=== PATIENT | male | born 1950 | race Caucasian/White ===

== ENCOUNTER 2019-10-21 00:21 | Outpatient (CLI) | payer MEDICARE, SELFPAY ==
[2019-10-21 17:31] LABS: SARS-CoV-2 RNA PCR Negative
== END 2019-10-21 00:22 | disposition home or self-care (01) ==
LOC: ANHCOVIDDT 00:21
PROVIDERS: PCP Family Medicine; Visit Provider Internal Medicine Gastroenterology
DX: Z01.812 Encounter for preprocedural laboratory examination (principal); Z20.828 Contact with and (suspected) exposure to other viral communicable diseases
CPT/HCPCS: 87635; C9803; U0003

== ENCOUNTER 2019-10-23 00:53 | Day surgery (SDC) | payer MEDICARE, SELFPAY ==
[2019-10-14 10:35] VITALS: BMI 32.3
[2019-10-23 06:25] VITALS: BP 150/65; PULSE 74; RESP 20; TEMP 36.5; O2SAT 100
[2019-10-23] MEDS: LACTATED RINGERS 1,000 ML 150 ML IV CONT (06:39)
[2019-10-23 06:51] LABS: Glucose Point of Care 141 (65-105)
--- NOTE | 2019-10-23 07:05 | WPDANESEPPF ---
Anes - Initial Pre Proc Eval Procedure: Operation Date: 10/23/19 07:30 Proposed Procedures p Screening Colonoscopy - Eleazar Faria MD Date/Time: 10/23/19 07:05 Surgeon: Eleazar Faria MD Pre Op Diagnosis: Hx Colon Polyps Patient Data Age: 69 Gender: M Height: 5 ft 11 in Weight: 107.7 kg Last Vital Signs Temp 36.5 C 10/23/19 06:25 Pulse 74 10/23/19 06:25 Resp 20 10/23/19 06:25 BP 150/65 H 10/23/19 06:25 Pulse Ox 100 10/23/19 06:25 Allergies Allergy/AdvReac Type Severity Reaction Status Date / Time No Known Allergies Allergy Verified 10/23/19 06:23 Home Medications Medication Instructions Recorded Confirmed Type tamsulosin 0.4 mg capsule 0.4 mg PO DAILY #90 cap 04/25/19 10/14/19 Rx lisinopril 10 mg tablet 10 mg PO DAILY #90 tablet 04/29/19 10/23/19 Rx pravastatin 20 mg tablet 20 mg PO .QHS #90 tablet 07/16/19 10/14/19 Rx metformin 500 mg tablet,extended 500 mg PO QPM #90 tablet 10/07/19 10/23/19 Rx release 24hr Laboratory Tests 10/23/19 06:41 POC Capillary Glucose 141 mg/dl H mg/dl (65-105) Patient hx anesthesia problems: none Family hx anesthesia problems: none PMFSH Past Medical History Medical History Allergic rhinitis BPH w urinary obs/LUTS Diabetes Dyslipidemia 05/01/2018 Erectile dysfunction Essential (primary) hypertension GERD without esophagitis 11/07/2018 Hypertension Hypogonadism in male 01/25/2017 Type 2 diabetes mellitus without complication, without long-term current use of insulin Surgical History Surgical History Hx of tonsillectomy age 3 [place] teeth extracted Family History Family History Father Heart disease Other Carcinoma of colon Social History Social History Smoking status: Never smoker Second hand tobacco smoke exposure: No Alcohol intake: current Substance use: never Substance use type: does not use Anes - Eval Final PreProcedure Day of Procedure 10/23/19 07:05 Patient weight: obese Heart: regular rate and rhythm Lungs: clear to auscultation Airway: Mallampati scale class II Neurological: alert and oriented Last oral intake: >/= 8 hours ASA classification: III Emergent: no Anesthetic plan: proceed Anesthesia type and monitoring: general GIVS and standard monitoring Informed Consent: The patient's anesthetic plan and its attendant risks and benefits were discussed with the patient/family/POA. Questions were solicited and answers provided to the satisfaction of the patient/family/POA.
--- NOTE | 2019-10-23 07:48 | WPDGICN ---
Assessment and Plan Assessment and plan (1) Encounter for colonoscopy due to history of adenomatous colonic polyps: Code(s): Z12.11 - Encounter for screening for malignant neoplasm of colon; Z86.010 - Personal history of colonic polyps Status: Acute Assessment and Plan: Patient has had a history of adenomatous colon polyps on several occasions in the past. Most recent exam was 5 years ago. Panel plan is for follow-up colonoscopy now and at 5 year intervals in the future. (2) Family history of malignant neoplasm of colon in first degree relative diagnosed when younger than 60 years of age: Code(s): Z80.0 - Family history of malignant neoplasm of digestive organs Status: Acute GI Consult Note Consult date/time: 10/23/19 07:48 HPI: Ishmael Pillai is a 69 year old male Seen in evaluation at the request of Dr. Singh. Patient has a history of colon polyps in the past. His current weight appetite bowel movements are normal. He denies abdominal pain. His weight has remained stable. Last colonoscopy was 5 years ago. There is a family history of colon cancer as well. [facility] Past Medical History Medical History Allergic rhinitis BPH w urinary obs/LUTS Diabetes Dyslipidemia 05/01/2018 Erectile dysfunction Essential (primary) hypertension GERD without esophagitis 11/07/2018 Hypertension Hypogonadism in male 01/25/2017 Type 2 diabetes mellitus without complication, without long-term current use of insulin Surgical History Surgical History Hx of tonsillectomy age 3 [place] teeth extracted Family History Family History Father Heart disease Other Carcinoma of colon Social History Social History Smoking status: Never smoker Second hand tobacco smoke exposure: No Alcohol intake: current Substance use: never Substance use type: does not use Meds Home Medications and Allergies Home Medications Medication Instructions Recorded Confirmed Type tamsulosin 0.4 mg capsule 0.4 mg PO DAILY #90 cap 04/25/19 10/14/19 Rx lisinopril 10 mg tablet 10 mg PO DAILY #90 tablet 12/03/19 05/28/20 Rx pravastatin 20 mg tablet 20 mg PO .QHS #90 tablet 07/16/19 10/14/19 Rx metformin 500 mg tablet,extended 500 mg PO QPM #90 tablet 10/07/19 10/23/19 Rx release 24hr Allergies Allergy/AdvReac Type Severity Reaction Status Date / Time No Known Allergies Allergy Verified 10/23/19 06:23 Vital Signs Vital Signs - 24 hr 10/23/19 06:25 Temperature 36.5 C Pulse Rate 74 Respiratory Rate 20 Blood Pressure 150/65 H Pulse Oximetry 100 Exam Narrative: Exam Narrative: Physical exam reveals patient to be alert. Oriented x3. Vital signs stable. HEENT exam unremarkable. He is anicteric. Lungs are clear to auscultation and percussion. Heart is without murmur or extra sounds. Abdominal exam bowel sounds are present soft nontender with no organomegaly. Digital external rectal exam is normal.
[2019-10-23 07:54] VITALS: BP 95/56; PULSE 71; RESP 17; O2SAT 98
[2019-10-23 08:04] VITALS: BP 115/56; PULSE 69; RESP 17; O2SAT 98
[2019-10-23 08:14] VITALS: BP 126/56; PULSE 59; RESP 18; O2SAT 98
== END 2019-10-23 08:37 | disposition home or self-care (01) ==
PROVIDERS: PCP Family Medicine; Visit Provider Internal Medicine Gastroenterology
PROC: 0DJD8ZZ Inspection of Lower Intestinal Tract, Via Natural or Artificial Opening Endoscopic (ICD-10-PCS; CPT 45378; principal; 2019-10-23 07:30)
DX: Z12.11 Encounter for screening for malignant neoplasm of colon (principal); K63.5 Polyp of colon; K64.8 Other hemorrhoids; Z80.0 Family history of malignant neoplasm of digestive organs; I10 Essential (primary) hypertension; E78.5 Hyperlipidemia, unspecified; E11.9 Type 2 diabetes mellitus without complications; N40.0 Benign prostatic hyperplasia without lower urinary tract symptoms; K21.9 Gastro-esophageal reflux disease without esophagitis; Z79.84 Long term (current) use of oral hypoglycemic drugs; E66.9 Obesity, unspecified; Z68.33 Body mass index [BMI] 33.0-33.9, adult
CPT/HCPCS: 45385; 88305; J2704; J7120

== ENCOUNTER 2020-12-10 14:19 | Outpatient (CLI) | payer MEDICARE, SELFPAY ==
--- NOTE | ~2020-12-10 | XR_ITS ---
XR sinus min 3V DATE: 12/10/2020 14:44 INDICATION: Nasal congestion for one year TECHNIQUE: 5 views COMPARISON: None FINDINGS: Leftward deviation of nasal septum. There is some cloudiness overlying the inferior right frontal sinus and much of the left frontal sinu s. There is increased density overlying the maxillary sinuses, right greater than left. The sphenoid sin uses appear unremarkable. The sella turcica appears normal. IMPRESSION: Bilateral frontal and maxillary sinus disease is suggested; CT sinus examination would be more definitive for evaluation of the paranasal sinuses Reviewed, dictated and finalized at location B. IMPRESSION: Bilateral frontal and maxillary sinus disease is suggested; CT sinu s examination would be more definitive for evaluation of the paranasal sinuses
== END 2020-12-10 14:20 | disposition home or self-care (01) ==
LOC: ANHIMG 14:24
PROVIDERS: PCP Family Medicine; Visit Provider Family Medicine
DX: R09.81 Nasal congestion (principal); J34.2 Deviated nasal septum
CPT/HCPCS: 70220

== ENCOUNTER → 2020-12-29 09:10 | Outpatient (CLI) | payer MEDICARE, SELFPAY ==
--- NOTE | ~2020-12-29 | CT_ITS ---
EXAMINATION: CT sinus wo con DATE: 12/29/2020 09:25 INDICATION: Nasal congestion TECHNIQUE: Computed tomography (CT) of the paranasal sinuses was performed without contrast. Iterativ e reconstruction technique was employed. Exam dose: 280.01 mGy-cm total exam DLP. COMPARISON: 12/10/2020 paranasal sinuses FINDINGS: There is leftward deviation of the nasal septum. Left nasal antral window and probable right nasal antral window with resection of the uncinate proces ses. There is prominent soft tissue density within the nasal cavities, right greater than left, partially engulfing the nasal turbinates, opacifying the right middle meatus. There is complete opacification o f the right ostiomeatal unit and nearly complete opacification of the right maxillary sinus. There is minimal mucoperiosteal thickening of the left maxillary sinus. There is extensive opacification of the ethmoid air cells bilaterally and prominent bilateral frontal sinus soft tissue thickening. There is prominent soft tissue thickening along the anterior aspect of the right and to a lesser exte nt left sphenoid sinus and a small fluid level in the left sphenoid sinus. The mastoid air cells are normally developed and aerated. Middle and inner ear apparatus are unremarkable bilaterally. IMPRESSION: Leftward deviation of nasal septum Extensive soft tissue thickening of the nasopharynx, particularly on the right, partially engulfing t he nasal turbinates, opacifying the right middle meatus Probable bilateral nasal antral windows Complete opacification of right ostiomeatal unit Nearly complete opacification right maxillary sinus Minimal mucoperiosteal thickening left maxillary sinus Bilateral frontal sinus prominent soft tissue thickening Prominent opacification of the ethmoid air cells Bilateral anterior right sphenoid sinus soft tissue thickening and small fluid level in the left sphe noid sinus Reviewed, dictated and finalized at Location A. Reviewed, dictated and finalized at location B. IMPRESSION: Leftward deviation of nasal septum Extensive soft tissue thickening of the nasopharynx, particularly on the right, partially engulfing the nasal turbinates, opacifying the right middle meatus Probable bilateral nasal antral windows Complete opacification of right ostiomeatal unit Nearly complete opacification right maxillary sinus Minimal mucoperiosteal thickening left maxillary sinus Bilateral frontal sinus prominent soft tissue thickening Prominent opacification of the ethmoid air cells Bilateral anterior right sphenoid sinus soft tissue thickening and small fluid level in the left sphenoid sinus
== END ==
PROVIDERS: PCP Family Medicine; Visit Provider Family Medicine
DX: R09.81 Nasal congestion (principal); J34.2 Deviated nasal septum; R93.0 Abnormal findings on diagnostic imaging of skull and head, not elsewhere classified
CPT/HCPCS: 70486

== ENCOUNTER 2021-12-14 09:17 | Outpatient (CLI) | payer MEDICARE, SELFPAY ==
[2021-12-14 12:06] LABS: Alanine Aminotransferase 19 U/L (6-50); Albumin Level 4.5 g/dL (3.5-5.1); Alkaline Phosphatase 69 U/L (38-126); Anion Gap 5 mmol/L (8-16); Aspartate Amino Transferase 46 U/L (17-59); Bilirubin,Total 0.9 mg/dL (0.2-1.3); Blood Urea Nitrogen 12 mg/dL (9-20); Calcium 9.1 mg/dL (8.4-10.2); Carbon Dioxide 28 mmol/L (22-30); Chloride 98 mmol/L (98-107); Estimated Glomerular Filt Rate > 60; Glucose 137 mg/dL (65-110); Potassium 4.5 mmol/L (3.4-5.0); Sodium 131 mmol/L (137-145)
[2021-12-14 12:12] LABS: Hemoglobin A1C 6.1 % (<5.7)
== END 2021-12-14 09:18 | disposition home or self-care (01) ==
LOC: ANHGOSHLAB 09:19
PROVIDERS: PCP Family Medicine; Visit Provider Family Medicine
DX: E11.9 Type 2 diabetes mellitus without complications (principal); I10 Essential (primary) hypertension
CPT/HCPCS: 36415; 80053; 83036

== ENCOUNTER 2022-06-19 09:09 | Outpatient (CLI) | payer MEDICARE, SELFPAY ==
[2022-06-19 16:55] LABS: Basophils Percent Auto 0.6 % (0.2-1.2); Eosinophils Absolute Auto 0.3 K/mm3 (0-0.3); Eosinophils Percent Auto 4.5 % (0-4.4); Hematocrit 45.1 % (42.0-52.0); Hemoglobin 15.5 g/dL (14.0-18.0); Immature Granulocyte Absolute 0.01 K/mm3 (0.00-0.031); Immature Granulocyte Percent A 0.2 % (0-0.5); Lymphocytes Absolute Auto 1.68 K/mm3 (0.9-3.2); Lymphocytes Percent Auto 27.3 % (18.3-44.2); Mean Corpuscular HGB Conc 34.4 g/dl (32-36); Mean Corpuscular Hemoglobin 30.4 pg (26-34); Mean Corpuscular Volume 88.4 fl (80-100); Mean Platelet Volume 10.7 fl (7.4-10.4); Monocytes Absolute Auto 0.5 K/mm3 (0.1-0.6); Monocytes Percent Auto 8.1 % (2.6-8.5); Neutrophils Absolute Auto 3.7 K/mm3 (1.3-6.7); Neutrophils Percent Auto 59.3 % (45.5-73.1); Platelet Count Result 166 k/mm3 (150-375); Red Cell Distribution Width 12.4 % (11.5-14.5); White Blood Count 6.2 K/mm3 (4.5-10.0)
[2022-06-19 17:24] LABS: Alanine Aminotransferase 23 U/L (6-50); Albumin Level 4.3 g/dL (3.5-5.1); Alkaline Phosphatase 73 U/L (38-126); Anion Gap 7 mmol/L (8-16); Aspartate Amino Transferase 33 U/L (17-59); Blood Urea Nitrogen 13 mg/dL (9-20); Calcium 9.7 mg/dL (8.4-10.2); Carbon Dioxide 29 mmol/L (22-30); Chloride 97 mmol/L (98-107); Cholesterol 201 mg/dL (0-200); Estimated Glomerular Filt Rate > 60; Glucose 143 mg/dL (65-110); HDL Direct 46 mg/dL; LDL Cholesterol Direct 112 mg/dL; Potassium 4.8 mmol/L (3.4-5.0); Sodium 133 mmol/L (137-145); Triglycerides 108 mg/dL (<150)
[2022-06-19 17:44] LABS: Prostate Specific Antigen 0.7 ng/mL (< OR = 4.0)
[2022-06-19 17:56] LABS: Creatinine Urine 70.4 mg/dL
[2022-06-19 18:01] LABS: MALB Creatinine Ratio 10.2 mg/g (0-30); Microalbumin Urine Random 7.2 mg/L (0-16.7)
[2022-06-19 18:45] LABS: Hemoglobin A1C 6.6 % (<5.7)
[2022-06-19 19:57] LABS: Vitamin D 25 Hydroxy 43.6 ng/mL
== END 2022-06-19 09:10 | disposition home or self-care (01) ==
PROVIDERS: PCP Family Medicine; Visit Provider Family Medicine
DX: I10 Essential (primary) hypertension (principal); E11.9 Type 2 diabetes mellitus without complications; E53.8 Deficiency of other specified B group vitamins; E55.9 Vitamin D deficiency, unspecified; Z12.5 Encounter for screening for malignant neoplasm of prostate; E78.5 Hyperlipidemia, unspecified
CPT/HCPCS: 36415; 80053; 80061; 82043; 82306; 82607; 83036; 84153; 84443; 85025; G0103

== ENCOUNTER 2022-12-19 09:51 | Outpatient (CLI) | payer MEDICARE, SELFPAY ==
[2022-12-20 00:42] LABS: Alanine Aminotransferase 24 U/L (6-50); Albumin Level 4.5 g/dL (3.5-5.1); Alkaline Phosphatase 65 U/L (38-126); Anion Gap 9 mmol/L (8-16); Aspartate Amino Transferase 44 U/L (17-59); Bilirubin,Total 0.8 mg/dL (0.2-1.3); Blood Urea Nitrogen 15 mg/dL (9-20); Calcium 9.2 mg/dL (8.4-10.2); Carbon Dioxide 26 mmol/L (22-30); Chloride 96 mmol/L (98-107); Estimated Glomerular Filt Rate > 60; Glucose 130 mg/dL (65-110); Potassium 4.6 mmol/L (3.4-5.0); Sodium 131 mmol/L (137-145)
[2022-12-20 04:27] LABS: Hemoglobin A1C 7.1 % (<5.7)
== END 2022-12-19 09:52 | disposition home or self-care (01) ==
LOC: ANHGOSHLAB 09:52
PROVIDERS: PCP Family Medicine; Visit Provider Family Medicine
DX: E11.9 Type 2 diabetes mellitus without complications (principal); I10 Essential (primary) hypertension
CPT/HCPCS: 36415; 80053; 83036

== ENCOUNTER 2023-06-25 10:22 | Outpatient (CLI) | payer MEDICARE, SELFPAY ==
[2023-06-25 18:45] LABS: Alanine Aminotransferase 24 U/L (6-50); Albumin Level 4.3 g/dL (3.5-5.1); Alkaline Phosphatase 70 U/L (38-126); Anion Gap 8 mmol/L (8-16); Aspartate Amino Transferase 38 U/L (17-59); Bilirubin,Total 1.3 mg/dL (0.2-1.3); Blood Urea Nitrogen 15 mg/dL (9-20); Calcium 9.7 mg/dL (8.4-10.2); Carbon Dioxide 26 mmol/L (22-30); Chloride 97 mmol/L (98-107); Cholesterol 145 mg/dL (0-200); Estimated Glomerular Filt Rate > 60; Glucose 172 mg/dL (65-110); HDL Direct 49 mg/dL; Potassium 4.5 mmol/L (3.4-5.0); Sodium 131 mmol/L (137-145); Triglycerides 91 mg/dL (<150)
[2023-06-25 18:58] LABS: LDL Cholesterol Direct 75 mg/dL
[2023-06-25 19:21] LABS: Creatinine Urine 100.6 mg/dL
[2023-06-25 19:23] LABS: Basophils Absolute Auto 0.1 K/mm3 (0.0-0.1); Eosinophils Absolute Auto 0.3 K/mm3 (0-0.3); Eosinophils Percent Auto 5.1 % (0-4.4); Hematocrit 44.6 % (42.0-52.0); Hemoglobin 14.9 g/dL (14.0-18.0); Immature Granulocyte Absolute 0.01 K/mm3 (0.00-0.031); Immature Granulocyte Percent A 0.2 % (0-0.5); Lymphocytes Absolute Auto 1.71 K/mm3 (0.9-3.2); Lymphocytes Percent Auto 28.8 % (18.3-44.2); Mean Corpuscular HGB Conc 33.4 g/dl (32-36); Mean Corpuscular Hemoglobin 29.9 pg (26-34); Mean Corpuscular Volume 89.4 fl (80-100); Mean Platelet Volume 11.2 fl (7.4-10.4); Monocytes Absolute Auto 0.5 K/mm3 (0.1-0.6); Monocytes Percent Auto 8.2 % (2.6-8.5); Neutrophils Absolute Auto 3.4 K/mm3 (1.3-6.7); Neutrophils Percent Auto 56.7 % (45.5-73.1); Platelet Count Result 162 k/mm3 (150-375); Red Blood Count 4.99 M/mm3 (4.6-6.20); Red Cell Distribution Width 12.5 % (11.5-14.5); White Blood Count 5.9 K/mm3 (4.5-10.0)
[2023-06-25 21:21] LABS: Hemoglobin A1C 8.1 % (<5.7)
[2023-06-25 22:10] LABS: Thyroid Stimulating Hormone Reflex 0.792 uIU/mL (0.465-4.68); Vitamin D 25 Hydroxy 46.4 ng/mL
== END 2023-06-25 10:23 | disposition home or self-care (01) ==
LOC: ANHGOSHLAB 10:23
PROVIDERS: PCP Family Medicine; Visit Provider Family Medicine
DX: I10 Essential (primary) hypertension (principal); E11.9 Type 2 diabetes mellitus without complications; E78.5 Hyperlipidemia, unspecified; E53.8 Deficiency of other specified B group vitamins; E55.9 Vitamin D deficiency, unspecified; Z00.00 Encounter for general adult medical examination without abnormal findings; Z12.5 Encounter for screening for malignant neoplasm of prostate
CPT/HCPCS: 36415; 80053; 80061; 82043; 82306; 82607; 83036; 84153; 84443; 85025; G0103

== ENCOUNTER 2023-11-18 08:14 | Emergency (ER) | payer MEDICARE, SELFPAY ==
--- NOTE | 2023-11-18 08:18 | ED.GENADULT ---
HPI - General Adult General Chief complaint: Urogenital-Male Stated complaint: uti symptoms Time Seen by Provider: 11/18/23 08:18 Source: patient Mode of arrival: ambulatory Limitations: no limitations History of Present Illness HPI narrative: 73-year-old male patient presents to the [facility] with complaints of urinary symptoms x2 days. Patient states he has been having pain with urination for the past 2 days denies any blood in the urine. Denies any abdominal pain or lower back pain. Patient states yesterday he did have a low-grade fever of 99. Denies any body aches or chills. Denies any confusion. Patient's he states he has had 1 or 2 urinary tract infections in the past. Patient does have history of BPH. Related Data Home Medications Medication Instructions Recorded Confirmed multivitamin-ferrous 1 tablet PO DAILY 12/25/19 11/18/23 fumarate-folic acid 18 mg-400 mcg tablet (Centrum Complete) cholecalciferol (vitamin D3) 25 25 mcg PO DAILY 12/14/21 11/18/23 mcg (1,000 unit) capsule Allergies Allergy/AdvReac Type Severity Reaction Status Date / Time No Known Allergies Allergy Verified 11/18/23 08:18 Review of Systems Review of Systems: CONSTITUTIONAL: Positive subjective low-grade fever, denies chills, or sweats. EYES: Denies visual changes, redness, or discharge. ENT: Denies rhinorrhea, congestion, sore throat, or otalgia. CARDIOVASCULAR: Denies chest pain, palpitations, or edema. RESPIRATORY: Denies cough or dyspnea. GASTROINTESTINAL: Denies abdominal pain, nausea, vomiting, or diarrhea. GENITOURINARY: positive dysuria , denies hematuria. SKIN: Denies rash or itching. MUSCULOSKELETAL: Denies back pain, joint pain, or myalgia. NEUROLOGIC: Denies headache, numbness, or weakness. PSYCHIATRIC: Denies anxiety or depression. [facility] Past Medical History Medical History Allergic rhinitis Boil of buttock BPH w urinary obs/LUTS Dyslipidemia 05/01/2018 Erectile dysfunction Essential (primary) hypertension Family history of malignant neoplasm of colon in first degree relative diagnosed when younger than 60 years of age GERD without esophagitis 11/07/2018 Hypogonadism in male 01/25/2017 Type 2 diabetes mellitus without complication, without long-term current use of insulin Surgical History Surgical History Hx of tonsillectomy (~1954) age 3 [place] teeth extracted (~1980) Family History Family History Father Heart disease Other Carcinoma of colon Social History Social History Smoking status: Never smoker Second hand tobacco smoke exposure: No Alcohol intake: current Alcohol use details: consumes 3 drinks of beer or liquor weekly. Substance use: never Substance use type: does not use Lack of Transportation: No Lack of Food: Never True Current Housing: I Have Housing Concerned About Future Housing: No Difficulty Paying Gas/Electric Bills: No Difficulty Paying for Meds: No Currently Unemployed: No Education: Bachelor's Degree Difficulty w/ Childcare or Family Care: No Living arrangements: with family Additional living arrangements comments: Occupation/Education: retired Gender identity (if verbalized by the patient): Male Sexual Orientation (if Verbalized by the Patient): Straight or Heterosexual Spiritual care concerns: No Comments At the time of my signature I agree with nursing past medical history, surgical, social, and family history. There is no relevant family history pertinent to the presenting complaint. Exam Narrative: GENERAL: Well-appearing, well-nourished, and in no acute distress. HEAD: Normocephalic, atraumatic. EYES: PERRLA and EOMI. ENT: Nares clear, no rhinorrhea or epistaxis. Mucous membranes m
[2023-11-18 08:24] VITALS: BP 129/74; PULSE 75; RESP 16; TEMP 36.1; O2SAT 99
== END 2023-11-18 08:52 | disposition home or self-care (01) ==
PROVIDERS: Emergency Provider Nurse Practitioner Family; PCP Family Medicine
DX: R30.0 Dysuria (principal); I10 Essential (primary) hypertension; K21.9 Gastro-esophageal reflux disease without esophagitis; E11.9 Type 2 diabetes mellitus without complications; E78.5 Hyperlipidemia, unspecified; N40.1 Benign prostatic hyperplasia with lower urinary tract symptoms
CPT/HCPCS: 81003; 87086; 87088; 99213; G0463

== ENCOUNTER 2023-12-26 09:42 | Outpatient (CLI) | payer MEDICARE, SELFPAY ==
[2023-12-26 13:18] LABS: Alanine Aminotransferase 24 U/L (6-50); Albumin Level 4.3 g/dL (3.5-5.1); Alkaline Phosphatase 78 U/L (38-126); Anion Gap 10 mmol/L (4-12); Aspartate Amino Transferase 42 U/L (17-59); Blood Urea Nitrogen 12 mg/dL (9-20); Calcium 9.6 mg/dL (8.4-10.2); Carbon Dioxide 26 mmol/L (22-30); Chloride 95 mmol/L (98-107); Estimated Glomerular Filt Rate > 60; Glucose 154 mg/dL (65-110); Potassium 4.3 mmol/L (3.4-5.0); Sodium 131 mmol/L (137-145)
[2023-12-26 14:13] LABS: Hemoglobin A1C 7.6 % (<5.7)
== END 2023-12-26 09:43 | disposition home or self-care (01) ==
PROVIDERS: PCP Family Medicine; Visit Provider Family Medicine
DX: I10 Essential (primary) hypertension (principal); E11.9 Type 2 diabetes mellitus without complications
CPT/HCPCS: 36415; 80053; 83036

== ENCOUNTER 2024-02-15 10:04 | Outpatient (CLI) | payer MEDICARE, SELFPAY ==
--- NOTE | ~2024-02-15 | CT_ITS ---
EXAMINATION: CTA chest PE protocol DATE: 02/15/2024 10:48 INDICATION: Shortness of breath TECHNIQUE: Computed tomography (CT) pulmonary angiogram of the chest was performed with 100 mL Omnipa que-350 intravenous contrast. Additional 3D reconstructions utilizing coronal maximum intensity proje ction (MIP) were performed. Automated exposure control and iterative reconstruction technique were em ployed. The dose-length product was 734.21 mGy-cm. COMPARISON: None FINDINGS: No pulmonary embolism. Minimal dependent atelectasis in the bilateral lower lobes. No pneumonia, pulm onary edema or pleural effusion. Mild cardiomegaly. Atherosclerotic coronary artery calcification is. No pericardial effusion. Ectatic ascending thoracic aorta measuring up to 4.3 cm maximal diameter. N o dissection. No pathologically enlarged thoracic lymphadenopathy. Visualized upper abdomen is unrema rkable. Incidental accessory right renal artery. Mild thoracic dextrocurvature with bridging osteophy milad at multiple levels consistent with diffuse idiopathic skeletal hyperostosis (DISH). IMPRESSION: 1. No pulmonary embolism or other acute cardiopulmonary disease. 2. Cardiomegaly. Reviewed, dictated and finalized at location B.
[2024-02-15 10:37] LABS: Estimated Glomerular Filt Rate > 60
== END 2024-02-15 10:05 | disposition home or self-care (01) ==
LOC: MICIMG 10:05
PROVIDERS: PCP Family Medicine; Visit Provider Family Medicine
DX: R93.89 Abnormal findings on diagnostic imaging of other specified body structures (principal); I51.7 Cardiomegaly
CPT/HCPCS: 71275; Q9967

== ENCOUNTER 2024-07-07 09:36 | Outpatient (CLI) | payer MEDICARE, SELFPAY ==
--- OUTSIDE RECORDS SUMMARY | 2024-07-07 10:08 | XMS_ITS | Encounter Summary ---
Author Organization [facility] Address [facility] [place] [address] Care Team Providers Care Wholesale Agronomist Name Role Phone Isela Garcia MD Primary Care Provider Gonzalez Zhu MD Unavailable [phone] Encounter Details Date Type Department Care Team (Late st Contact Info) Description 06/24/2024 [email or web address] Message Enc [place] [facility] THREE [facility], [facility] [address] [place] [address] Issa Chaudhry MD Three [facility]. [facility] [address] [place] [address] spironolactone 25 mg Social History Tobacco Use Types Packs/Day Years Used Date Smoking Tobacco: Never Smokeless Tobacco: Never Alcohol Use Standard Drinks/Week Comments Not Currently 3.3 (1 standard drink = 0.6 oz p ure alcohol) [facility] Utilities Answer Date Recorded In the past 12 months has [employer], gas, oil, or water [employer] threatened to shut off services in your home? No 06/08/2024 Humiliation, Afraid, Rape, and Kick questionnair e Answer Date Recorded Within the last year, have y ou been afraid of your partner or ex-partner? No 06/08/2024 Within the last year, have y ou been humiliated or emotionally abused in other ways by your partner or ex-partner? No Within the last year, have y ou been kicked, hit, slapped, or otherwise physically hurt by your partner or ex-partner? No 06/08/2024 Within the last year, have y ou been raped or forced to have any kind of sexual activity by your partner or ex-partner? No 06/08/2024 Overall Financial Resource Strain (CARDIA) Answe r Date Recorded How hard is it for you to pa y for the very basics like food, housing, medical care, and heating? Not hard at all 06/08/2024 Hunger Vital Sign Answer Date Recorded Within the past 12 months, y ou worried that your food would run out before you got the money to buy more. Never true 06/08/19 25 Within the past 12 months, t he food you bought just didn't last and you didn't have money to get more. Never true 06/08/2024 PRAPARE - Transportation Answer Date Re corded In the past 12 months, has l ack of transportation kept you from medical appointments or from getting medications? No 05/28 In the past 12 months, has l ack of transportation kept you from meetings, work, or from getting things needed for daily living? No 06/08/2024 Housing Stability Vital Sign Answer Chuck e Recorded In the last 12 months, was t here a time when you were not able to pay the mortgage or rent on time? No 06/08/2024 In the past 12 months, how m any times have you moved where you were living? 0 06/08/2024 At any time in the past 12 m [place], were you homeless or living in a chcf (including now)? No 06/08/2024 Sex and Gender Information Value Date Recorded Sex Assigned at Male 06/18/2024 10:28 AM PIPE PULLER Legal Sex Male 9:52 AM CDT Gender Identity Not on file Sexual Orientation Not on file documented as of this encounter Functional Status * Are you deaf or do you have serious difficulty hearing Answer Date of Assessment Author Status No 06/08/2024 7:09 AM Bill Israel, RN Active * Are you blind or do you have serious difficulty seeing, even when wearing glasses? Answer Date of Assessment Author Status No 06/08/2024 7:09 AM Bill Israel RN Active * Do you have serious difficulty walking or climbing stairs? Answer Date of Assessment Author Status No 06/08/2024 7:09 AM PIPE PULLER Bill Geronimo, RN Active * Do you have difficulty dressing or bathing? Answer Date of Assessment Author Status No 06/08/2024 7:09 AM Blil Israel ie, RN Active * Because of a physical, mental, or emotional condition, do you have difficulty doing errands alone such as visiting a doctor's office or shopping? Answer Date of Assessment Author Status No 06/08/2024 7:09 AM Bill Israel, RN Active documented as of this encounter Mental Status * Because of a physical, mental, or emotional condition, do you have serious difficulty concentrating, remembering, or making decisions? Answer Entry Date Author Status No 06/08/2024 7:09 AM Bill Israel, RN Active documented in this encounter Plan of Treatment Upcoming Encounters Date Type Department Care Team (Late st Contact Info) Description 07/08/2024 9:00 AM PIPE PULLER [facility] [address] [place] [address] Issa Chaudhry MD [facility]. [facility] [address] [place], [place] [id number] 08/28/2024 10:00 AM CDT Office Visit [facility] [address] [place] [address] Comfort Elliott FNP [address] [place] [address] [address] [place] [address] documented as of this encounter Goals Goal Patient Goal Type Associated Problems Recent Progress Patient-Stated? Author Health - patient able to perform ADLs independently Lifestyle Tammy Castro RN documented as of this encounter Visit Diagnoses Not on filedocumented in this encounter Care Teams Wholesale Agronomist Relationship Specialty Start Date End Date Isela Garcia MD [address] [place] [address] PCP - General FAMILY PRACTICE 02/06/24 Gonzalez Zhu MD [facility]. [address] [address] Consulting Physician CARDIOVASCULAR DISEASE 05/23/24 documented as of this encounter
--- OUTSIDE RECORDS SUMMARY | 2024-07-07 10:08 | XMS_ITS | Encounter Summary ---
Author Organization [facility] Address [facility] [place] [address] Care Team Providers Care Welder Apprentice Arc Name Role Phone Isela Garcia MD Primary Care Provider Gonzalez Zhu MD Unavailable [phone] Encounter Details Date Type Department Care Team (Late st Contact Info) Description 03/31/2024 Sight[employer]inet Message Enc [place] [facility] THREE [facility], [facility] [address] [place] [address] Gonzalez Zhu MD [facility]. [facility] [address] [place] [address] Upcoming [facility] Social History Tobacco Use Types Packs/Day Years Used Date Smoking Tobacco: Never Smokeless Tobacco: Never Alcohol Use Standard Drinks/Week Comments Yes 3.3 (1 standard drink = 0.6 oz p ure alcohol) Sex and Gender Information Value Date Recorded Sex Assigned at Male 06/18/2024 10:28 AM DOCUMENTATION MANAGER Legal Sex Male 9:52 AM CDT Gender Identity Not on file Sexual Orientation Not on file documented as of this encounter Plan of Treatment Upcoming Encounters Date Type Department Care Team (Late st Contact Info) Description 07/08/2024 9:00 AM DOCUMENTATION MANAGER Office Visit [facility] THREE [facility], [facility] [address] [place] [address] Issa Chaudhry MD [facility]. [facility] [address] [place] [address] 08/28/2024 10:00 AM CDT [facility] [address] [place] [address] Comfort Elliott, SPLUNK CONSULTANT [address] [facility] [address] [place], [place] [id number] documented as of this encounter Visit Diagnoses Not on filedocumented in this encounter Care Teams Welder Apprentice Arc Relationship Specialty Start Date End Date Isela Garcia MD [address] [place] [address] PCP - General FAMILY PRACTICE 02/06/24 Gonzalez Zhu MD Three [facility]. [facility] [address] [place] [address] Consulting Physician CARDIOVASCULAR DISEASE 05/23/24 documented as of this encounter
--- OUTSIDE RECORDS SUMMARY | 2024-07-07 10:08 | XMS_ITS | Encounter Summary ---
Author Organization [facility] Address [address] [place] [address] Care Team Providers Care Inventory Clerk Name Role Phone Isela Garcia MD Primary Care Provider Gonzalez Zhu MD Unavailable [phone] Encounter Details Date Type Department Care Team (Late st Contact Info) Description 04/15/2024 Stylect Message Enc [place] [facility] [facility], [facility] [address] [place] [address] Gonzalez Zhu MD [facility]. [facility] [address] [place] [address] [facility] Social History Tobacco Use Types Packs/Day Years Used Date Smoking Tobacco: Never Smokeless Tobacco: Never Alcohol Use Standard Drinks/Week Comments Yes 3.3 (1 standard drink = 0.6 oz p ure alcohol) Sex and Gender Information Value Date Recorded Sex Assigned at Male 06/18/2024 10:28 AM PETS SALESPERSON Legal Sex Male 9:52 AM CDT Gender Identity Not on file Sexual Orientation Not on file documented as of this encounter Plan of Treatment Upcoming Encounters Date Type Department Care Team (Late Contact Info) Description 07/08/2024 9:00 AM PETS SALESPERSON Office Visit [place] [facility] [facility], [facility] [address] [place], [place] [id number] Issa Chaudhry MD [facility]. [facility] [address] [place] [address] 08/28/2024 10:00 AM CDT Office Visit [place] [facility] [address] [place] [address] Comfort Elliott, PROJECT MANAGER RETAIL 3 [facility] [address] [place], [place] [address] documented as of this encounter Visit Diagnoses Not on filedocumented in this encounter Care Teams Inventory Clerk Relationship Specialty Start Date End Date Isela Garcia MD [address] [place] [address] PCP - General FAMILY PRACTICE 02/06/24 Gonzalez Zhu MD Three [facility]. [facility] [address] [place] [address] Consulting Physician CARDIOVASCULAR DISEASE 05/23/24 documented as of this encounter
--- OUTSIDE RECORDS SUMMARY | 2024-07-07 10:08 | XMS_ITS | Encounter Summary ---
Author Organization [facility] Address [address] [place] [id number] Care Team Providers Care Lithographic Proofer Apprentice Name Role Phone Isela Garcia MD Primary Care Provider Gonzalez Zhu MD Unavailable Encounter Details Date Type Department Care Team (Late st Contact Info) Description 04/10/2024 [place] Message Enc [facility], [address] [address] Gonzalez Zhu MD [facility]. [address] [address] HCT Social History Tobacco Use Types Packs/Day Years Used Date Smoking Tobacco: Never Smokeless Tobacco: Never Alcohol Use Standard Drinks/Week Comments Yes 3.3 (1 standard drink = 0.6 oz p ure alcohol) Sex and Gender Information Value Date Recorded Sex Assigned at Male 06/18/2024 10:28 AM VETERINARY BACTERIOLOGIST Legal Sex Male 9:52 AM CDT Gender Identity Not on file Sexual Orientation Not on file documented as of this encounter Progress Notes * JLUIS Sorto - 04/10/2024 1:57 PM CST No significant drop so no, not at this time RINARY BACTERIOLOGIST documented in this encounter Plan of Treatment Upcoming Encounters Date Type Department Care Team (Late st Contact Info) Description 07/08/2024 9:00 AM VETERINARY BACTERIOLOGIST Office Visit [facility], [facility] [address] [place] [address] Issa Chaudhry MD Three [facility]. [facility] [address] [place] [address] 08/28/2024 10:00 AM CDT [facility] [address] [place] [id number] Comfort Elliott FNP [facility] [address] [place] [address] documented as of this encounter Visit Diagnoses Not on filedocumented in this encounter Care Teams Lithographic Proofer Apprentice Relationship Specialty Start Date End Date Isela Garcia MD [address] [place] [address] PCP - General FAMILY PRACTICE 02/06/24 Gonzalez Zhu MD Three [facility]. [facility] [address] [place] [address] Consulting Physician CARDIOVASCULAR DISEASE 05/23/24 documented as of this encounter
--- OUTSIDE RECORDS SUMMARY | 2024-07-07 10:08 | XMS_ITS | Clinical Summary ---
Author Organization [facility] Address [address] [place] [address] Care Team Providers Care Featherer Name Role Phone Isela Garcia MD Primary Care Provider Gonzalez Zhu MD Unavailable [phone] Allergies No known active allergies Medications tamsulosin (FLOMAX) 0.4 MG Cap Take 1 capsule (0.4 mg total) by mouth nightly. Active budesonide (PULMICORT) 0.25 MG/2ML nebulizer solution Pt using once daily, NASAL IRRIGATION (NOT NEBULIZER) 02/17/20 Active aspirin 81 MG chewable tablet Chew 1 tablet (81 mg total) by mouth daily. Taken at noon. Last dose prior to surgery 05/22/24 Active coenzyme Q-10 (CO Q-10) 150 MG capsule Take 1 capsule (150 mg total) by mouth daily. Active multi vitamin/mineral s (CENTRUM ADULTS) tablet Take 1 tablet by mouth daily. Active lisinopril (PRINIVIL) 10 MG tablet Take 1 tablet (10 mg total) by mouth daily. Last dose 05/27/24 prior to surgery 03/17/20 24 Active nitroglycerin (NITROSTAT) 0.[address] 1 tablet (0.4 mg total) under the tongue every 5 (five) minutes as needed for Chest Pain. Maximum of 3 doses, if a third dose is needed call 911. 25 tablet 3 04/16/20 24 025 Active rosuvastatin (CRESTOR) 20 MG tablet TAKE 1 TABLET(20 MG) BY MOUTH EVERY NIGHT AT BEDTIME 90 tablet 05/05/20 24 Active docusate sodium (COLACE) 100 MG capsule Take 1 capsule (100 mg total) by mouth daily. Active Naproxen Sodium (ALEVE OR) Take 1 tablet by mouth every 8 (eight) hours as needed (pain). Active metoprolol succinate ER (TOPROL-XL) 100 MG 24 hr tabletIndicatio ns:post operative CABG x6 Take 1 tablet (100 mg total) by mouth daily. Indications: post operative CABG x6 30 tablet 1 06/08/19 25 Active traMADol (ULTRAM) 50 MG tabletIndicatio ns:Acute Pain < 7 Day Supply Take 1 tablet (50 mg total) by mouth every 6 (six) hours as needed for Pain. Indications: Acute Pain < 7 Day Supply 28 tablet 06/08/19 25 Active spironolactone (ALDACTONE) 25 MG tabletIndicatio ns:Localized swelling of lower extremity,S/P CABG (coronary artery bypass graft) TAKE 1/2 TABLET(12.5 MG) BY MOUTH DAILY 45 tablet 06/23/19 25 Active metFORMIN ER (GLUCOPHAGE-XR) 500 MG 24 hr tablet Take 4 tablets (2,000 mg total) by mouth daily. 06/24/19 25 Active JARDIANCE 25 MG tablet Take 1 tablet (25 mg total) by mouth every morning. 06/23/19 25 Active furosemide (LASIX) 40 MG tabletIndicatio ns:Localized swelling of lower extremity,Hyper volemia, unspecified hypervolemia type,S/P CABG (coronary artery bypass graft) Take 1 tablet (40 mg total) by mouth 2 (two) times daily. 60 tablet 6 07/03/19 25 Active metFORMIN ER, MOD, (GLUMETZA) 500 MG TABLET SR 24 HR 24 hr tablet Take 3 tablets (1,500 mg total) by mouth daily with supper. 025 Discontinued(S ig Adjustment) metoprolol succinate ER (TOPROL XL) 25 MG 24 hr tablet Take 1 tablet (25 mg total) by mouth daily. 90 tablet 3 04/07/20 24 025 Discontinued(S top Taking at Discharge) furosemide (LASIX) 40 MG tabletIndicatio ns:Localized swelling of lower extremity,Fluid overload,S/P CABG (coronary artery bypass graft) Take 1 tablet (40 mg total) by mouth daily. 30 tablet 06/19/19 25 025 Discontinued(R eorder) spironolactone (ALDACTONE) 25 MG tabletIndicatio ns:Localized swelling of lower extremity,S/P CABG (coronary artery bypass graft) Take 0.5 tablets (12.5 mg total) by mouth daily. 30 tablet 06/23/19 25 025 Discontinued Active Problems Problem Noted Date Diagnosed Date CAD (coronary artery disease) 06/04/2024 Encounters Date Type Department Care Team Description 07/03/2024 11:30 AM TAPROOM ATTENDANT [facility] [address] [place] [address] Comfort Elliott [facility] Hospital Follow Up (S/p CABG X 6); Edema 07/03/2024 Travel 06/24/2024 MyChart Message Enc [facility] on [address] [address] Sadia Chaudhry MD spironolactone 25 mg 06/23/2024 9:44 AM TAPROOM ATTENDANT - 06/23/2024 11:59 PM TAPROOM ATTENDANT Hospital Encounter [facility] [place] [address] Sadia Chaudhry MD Discharge Disposition: Home or Self Care (Routine Discharge) 06/23/2024 Telephone [facility] [address] [address] Sadia Chaudhry MD Lab Results 06/23/2024 Travel 06/18/2024 10:29 AM TAPROOM ATTENDANT - 06/18/2024 11:59 PM TAPROOM ATTENDANT Hospital Encounter [facility] [place] [address] Sadia Chaudhry MD Discharge Disposition: Home or Self Care (Routine Discharge) 06/18/2024 Travel 06/18/2024 MyChart Message Enc [facility] [address] [place] [address] Sadia Chaudhry MD leg swelling, blood sudar 06/10/2024 12:30 PM TAPROOM ATTENDANT Home Care Visit [facility] [address] [place] [address] [place] [address] Aide Bartlett RN SN NON ADMIT SOC 06/04/2024 7:30 AM TAPROOM ATTENDANT - 06/04/2024 2:39 PM TAPROOM ATTENDANT Surgery [facility] [place] [address] Sadia Chaudhry MD CORONARY ARTERY BYPASS GRAFT TIMES SIX WITH LEFT INTERNAL MAMMARY ARTERY AND ENDOSCOPICALLY HARVESTED BILATERAL GREATER SAPHENOUS VEINS, INTRAOPERATIVE TRANSESOPHAGEAL ECHOCARDIOGRAM, AORTIC SCAN, AND CARDIOPULMONARY BYPASS 06/04/2024 7:27 AM TAPROOM ATTENDANT Anesthesia Event [place] [address] Marky Camargo MD Jarvis, Brittany L, CASING IN LINE FEEDER 06/04/2024 5:41 AM TAPROOM ATTENDANT - 06/08/2024 11:16 AM TAPROOM ATTENDANT Hospital Encounter [facility] [address] Sadia Chaudhry MD Discharge Disposition: Home with Home Health Care 06/04/2024 Travel 06/03/2024 Telephone [facility] [address] [address] Sadia Chaudhry MD Pre-op Surgery/Cosmetic 05/23/2024 7:59 AM TAPROOM ATTENDANT - 05/23/2024 1:54 PM TAPROOM ATTENDANT Hospital Encounter [facility] [place] [address] Sadia Chaudhry MD Discharge Disposition: Home or Self Care (Routine Discharge) 05/23/2024 6:26 AM TAPROOM ATTENDANT Hospital Encounter [facility] [place] [address] Sadia Chaudhry MD Discharge Disposition: Home or Self Care (Routine Discharge) 05/23/2024 Travel 05/06/2024 12:30 PM TAPROOM ATTENDANT Office Visit [facility], [address] [address] Sadia Chaudhry MD Coronary Artery Disease 05/06/2024 Travel 04/16/2024 11:30 AM TAPROOM ATTENDANT Office Visit [facility], [address] [address] Gonzalez Zhu MD Coronary Artery Disease; Follow Up 04/16/2024 Travel 04/15/2024 MyChart Message Enc [facility], [address] [address] Gonzalez Zhu MD Letter sent [facility] 04/10/2024 9:03 AM TAPROOM ATTENDANT - 04/10/2024 11:59 PM TAPROOM ATTENDANT Hospital Encounter [facility] [place] [address] Comfort Elliott FNP Discharge Disposition: Home or Self Care (Routine Discharge) 04/10/2024 MyChart Message Enc [facility], [address] [address] Gonzalez Zhu MD [facility] 04/10/2024 Travel 04/07/2024 6:20 AM TAPROOM ATTENDANT - 04/07/2024 12:56 PM TAPROOM ATTENDANT Hospital Encounter [facility] [place] [address] Comfort Elliott FNP Discharge Disposition: Home or Self Care (Routine Discharge) 04/07/2024 Travel from Last 3 Months Immunizations Name Administration Dates Next Due Arexvy Respiratory Syncytial Virus (RSV, adjuvanted) 0.5 mL, PF 04/02/2023 Fluzone High Dose (IIV, triv alent, 0.5mL) 02/20/2019,02/13/2018,02/05/2017,2015,02/14/2015 Influenza (Generic) 02/09/2014 Influenza Adult (Generic) 02/14/2023,11/2021,02/15/2021,2019 Shingrix 09/22/2020,06/14/2020 Family History Medical History Relation Comments CHF Father CHF Mother passed in her 90 's Relation Status Comments Father Mother Social History Tobacco Use Types Packs/Day Years Used Date Smoking Tobacco: Never Smokeless Tobacco: Never Tobacco Cessation:Counseling Given: Not Answered Alcohol Use Standard Drinks/Week Comments Not Currently 3.3 (1 standard drink = 0.6 oz p ure alcohol) [facility] Utilities Answer Date Recorded In the past 12 months has e [employer], gas, oil, or water [employer] threatened to shut off services in your [...] any time in the past 12 m [facility], were you homeless or living in a group home (including now)? No 06/08/2024 Sex and Gender Information Value Date Recorded Sex Assigned at Male 06/18/2024 10:28 AM TAPROOM ATTENDANT Legal Sex Male 9:52 AM CDT Gender Identity Not on file Sexual Orientation Not on file Last Filed Vital Signs Vital Sign Reading Time Taken Comments Blood Pressure 120/60 07/03/2024 11:09 AM TAPROOM ATTENDANT Pulse 67 07/03/2024 11:09 AM TAPROOM ATTENDANT Temperature 36.9 C (98.5 F) 06/08/2024 8:00 AM TAPROOM ATTENDANT Respiratory Rate 20 06/08/2024 9:00 AM TAPROOM ATTENDANT Oxygen Saturation 96% 07/03/2024 11:09 AM TAPROOM ATTENDANT Inhaled Oxygen Concentration - - Weight 114.8 kg (253 lb) 07/03/2024 11:09 AM TAPROOM ATTENDANT Height 182.9 cm (6') 07/03/2024 11:09 AM TAPROOM ATTENDANT Body Mass Index 34.31 07/03/2024 11:09 AM TAPROOM ATTENDANT Plan of Treatment Upcoming Encounters Date Type Department Care Team (Late st Contact Info) Description 07/08/2024 9:00 AM TAPROOM ATTENDANT Office Visit [facility] [address] [place], [place] [id number] Sadia Chaudhry MD [facility] [address] [place] [address] 08/28/2024 10:00 AM CDT [facility] [address] [place] [id number] Comfort Elliott, JLUIS [address] [facility] [address] [place] [address] Health Maintenance Due Date Last Done Comments Colorectal Cancer Screening Colonoscopy (10 Years) 1948 Kidney Health Evaluation 1950 Pneumococcal Vaccine: 65+ Years (1 of 2 - PCV) 1954 Diabetes: Retinopathy Eye Exam 1966 Hepatitis C 1966 DTaP, Tdap and Td Vaccines (1 - Tdap) 1967 Annual Medicare Wellness Visit 2013 COVID-19 Vaccine ( season) 2024 02/14/2023, 10/04/2022, 02/01/2022, Additional history exists Influenza Adult (#1) 2024 02/14/2023, 02/01/2022, 02/15/2021, Additional history exists Hemoglobin A1C 11/21/2024 05/23/2024 Lipid Panel 03/25/2025 03/25/2024 Zoster Vaccines Completed 09/22/2020, 06/14/2020 RSV Immunization or 60+ Years Completed 04/02/2023 Meningococcal B Vaccine Aged Out No l onger eligible based on patient's age to complete this topic Meningococcal Vaccine Aged Out No sasha darren eligible based on patient's age to complete this topic RSV Immunizations Under 20 Months Aged Out No longer eligible based on patient's age to complete this topic Goals Goal Patient Goal Type Associated Problems Recent Progress Patient-Stated? Author Health - patient able to perform ADLs independently Lifestyle No Tammy Rainey, RN Medical Devices Implanted Type Area Log Peeler Device Identifier Shelf Expiration Date Model / Serial / Lot Wire Sternotomy Suture Kit - [id number] Implanted:Qty: 1 on 06/04/2024 by Chaim Ching RNFA at [facility] Wire N/A: Sternum [employer] 06/28/2027 [id number] / / [id number] Description:5 wires implante d Wire Sterum Suture Kit [employer] #7 / [facility]-1 - [id number] Implanted:Qty: 1 on 06/04/2024 by Chaim Ching RNFA at [facility] Wire N/A: [employer] 12/26/2026 [id number] / / [id number] Description:2 wires implante d Procedures Procedure Name Priority Date/Time Associated Diagnosis Comments PRO-BRAIN NATRIURETIC PEPTIDE Routine 06/23/2024 9:48 AM TAPROOM ATTENDANT Localized swelling of lower extremity Fluid overload S/P CABG (coronary artery bypass graft) Acute systolic (congestive) heart failure (CMS/HCC HHS/HCC) BASIC METABOLIC PANEL Routine 06/23/2024 9:48 AM TAPROOM ATTENDANT Localized swelling of lower extremity Fluid overload S/P CABG (coronary artery bypass graft) BASIC METABOLIC PANEL Routine 06/18/2024 10:38 AM TAPROOM ATTENDANT Localized swelling of lower extremity Hyponatremia XR CHEST PA+LAT Today 06/08/2024 9:40 AM TAPROOM ATTENDANT BASIC METABOLIC PANEL Routine 06/08/2024 4:00 AM TAPROOM ATTENDANT CBC W/DIFF AUTOMATED Routine 06/08/2024 4:00 AM TAPROOM ATTENDANT POCT GLUCOSE - RICHARD DOCKED DEVICE Routine 06/07/2024 8:00 PM TAPROOM ATTENDANT POCT GLUCOSE - RICHARD DOCKED DEVICE Routine 06/07/2024 1:51 PM TAPROOM ATTENDANT POCT GLUCOSE - RICHARD DOCKED DEVICE Routine 06/07/2024 11:27 AM TAPROOM ATTENDANT XR CHEST PORTABLE STAT 06/07/2024 9:4 6 AM TAPROOM ATTENDANT POCT GLUCOSE - RICHARD DOCKED DEVICE Routine 06/07/2024 9:31 AM TAPROOM ATTENDANT POCT GLUCOSE - RICHARD DOCKED DEVICE Routine 06/07/2024 7:41 AM TAPROOM ATTENDANT BASIC METABOLIC PANEL Routine 06/07/2024 5:00 AM TAPROOM ATTENDANT CBC W/DIFF AUTOMATED Routine 06/07/2024 5:00 AM TAPROOM ATTENDANT POCT GLUCOSE - RICHARD DOCKED DEVICE Routine 06/07/2024 4:59 AM TAPROOM ATTENDANT POCT GLUCOSE - RICHARD DOCKED DEVICE Routine 06/07/2024 3:53 AM TAPROOM ATTENDANT POCT GLUCOSE - RICHARD DOCKED DEVICE Routine 06/07/2024 2:58 AM TAPROOM ATTENDANT POCT GLUCOSE - RICHARD DOCKED DEVICE Routine 06/07/2024 1:57 AM TAPROOM ATTENDANT POCT GLUCOSE - RICHARD DOCKED DEVICE Routine 06/07/2024 1:07 AM TAPROOM ATTENDANT POCT GLUCOSE - RICHARD DOCKED DEVICE Routine 06/06/2024 11:04 PM TAPROOM ATTENDANT POCT GLUCOSE - RICHARD DOCKED DEVICE Routine 06/06/2024 8:59 PM TAPROOM ATTENDANT POCT GLUCOSE - RICHARD DOCKED DEVICE Routine 06/06/2024 7:08 PM TAPROOM ATTENDANT POCT GLUCOSE - RICHARD DOCKED DEVICE Routine 06/06/2024 5:05 PM TAPROOM ATTENDANT POCT GLUCOSE - RICHARD DOCKED DEVICE Routine 06/06/2024 3:09 PM TAPROOM ATTENDANT POCT GLUCOSE - RICHARD DOCKED DEVICE Routine 06/06/2024 2:07 PM TAPROOM ATTENDANT POCT GLUCOSE - RICHARD DOCKED DEVICE Routine 06/06/2024 1:01 PM TAPROOM ATTENDANT POCT GLUCOSE - RICHARD DOCKED DEVICE Routine 06/06/2024 11:10 AM TAPROOM ATTENDANT POCT GLUCOSE - RICHARD DOCKED DEVICE Routine 06/06/2024 10:10 AM TAPROOM ATTENDANT XR CHEST PORTABLE STAT 06/06/2024 9:3 8 AM TAPROOM ATTENDANT POCT GLUCOSE - RICHARD DOCKED DEVICE Routine 06/06/2024 9:19 AM TAPROOM ATTENDANT POCT GLUCOSE - RICHARD DOCKED DEVICE Routine 06/06/2024 8:07 AM TAPROOM ATTENDANT POCT GLUCOSE - RICHARD DOCKED DEVICE Routine 06/06/2024 5:50 AM TAPROOM ATTENDANT BASIC METABOLIC PANEL Routine 06/06/2024 3:50 AM TAPROOM ATTENDANT CBC W/DIFF AUTOMATED Routine 06/06/2024 3:50 AM TAPROOM ATTENDANT POCT GLUCOSE - RICHARD DOCKED DEVICE Routine 06/06/2024 3:35 AM TAPROOM ATTENDANT POCT GLUCOSE - RICHARD DOCKED DEVICE Routine 06/06/2024 12:17 AM TAPROOM ATTENDANT POCT GLUCOSE - RICHARD DOCKED DEVICE Routine 06/05/2024 10:18 PM TAPROOM ATTENDANT POCT GLUCOSE - RICHARD DOCKED DEVICE Routine 06/05/2024 9:20 PM TAPROOM ATTENDANT POCT GLUCOSE - RICHARD DOCKED DEVICE Routine 06/05/2024 7:56 PM TAPROOM ATTENDANT POCT GLUCOSE - RICHARD DOCKED DEVICE Routine 06/05/2024 7:10 PM TAPROOM ATTENDANT POCT GLUCOSE - RICHARD DOCKED DEVICE Routine 06/05/2024 5:08 PM TAPROOM ATTENDANT POCT GLUCOSE - RICHARD DOCKED DEVICE Routine 06/05/2024 4:07 PM TAPROOM ATTENDANT POCT GLUCOSE - RICHARD DOCKED DEVICE Routine 06/05/2024 2:53 PM TAPROOM ATTENDANT POCT GLUCOSE - RICHARD DOCKED DEVICE Routine 06/05/2024 1:24 PM TAPROOM ATTENDANT POCT GLUCOSE - RICHARD DOCKED DEVICE Routine 06/05/2024 12:15 PM TAPROOM ATTENDANT POCT GLUCOSE - RICHARD DOCKED DEVICE Routine 06/05/2024 11:18 AM TAPROOM ATTENDANT POCT GLUCOSE - RICHARD DOCKED DEVICE Routine 06/05/2024 10:23 AM TAPROOM ATTENDANT POCT GLUCOSE - RICHARD DOCKED DEVICE Routine 06/05/2024 9:14 AM TAPROOM ATTENDANT POCT GLUCOSE - RICHARD DOCKED DEVICE Routine 06/05/2024 7:54 AM TAPROOM ATTENDANT POCT GLUCOSE - RICHARD DOCKED DEVICE Routine 06/05/2024 5:04 AM TAPROOM ATTENDANT ECG 12-LEAD Routine 06/05/2024 4:56 AM TAPROOM ATTENDANT CG8 PLUS-ISTAT Routine 06/05/2024 4:35 AM TAPROOM ATTENDANT COMPREHENSIVE METABOLIC PANEL Routine 06/05/2024 4:30 AM TAPROOM ATTENDANT CBC, AUTO, NO DIFF Routine 06/05/2024 4: 30 AM TAPROOM ATTENDANT POCT GLUCOSE - RICHARD DOCKED DEVICE Routine 06/05/2024 3:28 AM TAPROOM ATTENDANT POCT GLUCOSE - RICHARD DOCKED DEVICE Routine 06/05/2024 12:46 AM TAPROOM ATTENDANT POCT GLUCOSE - RICHARD DOCKED DEVICE Routine 06/04/2024 11:04 PM TAPROOM ATTENDANT POCT GLUCOSE - RICHARD DOCKED DEVICE Routine 06/04/2024 10:03 PM TAPROOM ATTENDANT BLOOD GAS, ARTERIAL LAB TIMED 06/04/2024 9:23 PM TAPROOM ATTENDANT POCT GLUCOSE - RICHARD DOCKED DEVICE Routine 06/04/2024 8:56 PM TAPROOM ATTENDANT POTASSIUM, SERUM Routine 06/04/2024 7:45 PM TAPROOM ATTENDANT POCT GLUCOSE - RICHARD DOCKED DEVICE Routine 06/04/2024 7:02 PM TAPROOM ATTENDANT POCT GLUCOSE - RICHARD DOCKED DEVICE Routine 06/04/2024 5:59 PM TAPROOM ATTENDANT POCT GLUCOSE - RICHARD DOCKED DEVICE Routine 06/04/2024 5:17 PM TAPROOM ATTENDANT CG8 PLUS-ISTAT Routine 06/04/2024 3:55 PM TAPROOM ATTENDANT POCT GLUCOSE - RICHARD DOCKED DEVICE Routine 06/04/2024 3:55 PM TAPROOM ATTENDANT XR CHEST PORTABLE STAT 06/04/2024 3:4 3 PM TAPROOM ATTENDANT CG8 PLUS-ISTAT Routine 06/04/2024 3:39 PM TAPROOM ATTENDANT LACTIC ACID STAT 06/04/2024 3:30 PM TAPROOM ATTENDANT GLUCOSE BLOOD, QNT STAT 06/04/2024 3: 30 PM TAPROOM ATTENDANT ELECTROLYTE PANEL STAT 06/04/2024 3:3 0 PM TAPROOM ATTENDANT BLOOD GAS, ARTERIAL LAB STAT 06/04/2024 3:30 PM TAPROOM ATTENDANT PLATELET COUNT, AUTO STAT 06/04/2024 3:30 PM TAPROOM ATTENDANT HEMOGLOBIN AND HEMATOCRIT STAT 06/04/2024 3:30 PM TAPROOM ATTENDANT USE TRANSESOPHAGEAL ECHO Routine 06/04/2024 3:19 PM TAPROOM ATTENDANT CAD (coronary artery disease), [place] coronary artery Preop testing POCT GLUCOSE - RICHARD DOCKED DEVICE Routine 06/04/2024 2:52 PM TAPROOM ATTENDANT CG8 PLUS-ISTAT Routine 06/04/2024 1:30 PM TAPROOM ATTENDANT POCT ACTIVATED CLOTTING TIME - DOCKED DEVICE Routine 06/04/2024 1:22 PM TAPROOM ATTENDANT PROTHROMBIN TIME, VENOUS STAT 06/04/2024 1:21 PM TAPROOM ATTENDANT PARTIAL THROMBOPLASTIN TIME,PTT STAT 06/04/2024 1:21 PM TAPROOM ATTENDANT FIBRINOGEN STAT 06/04/2024 1:21 PM TAPROOM ATTENDANT CBC, AUTO, NO DIFF STAT 06/04/2024 1: 21 PM TAPROOM ATTENDANT CG8 PLUS-ISTAT Routine 06/04/2024 12:57 PM TAPROOM ATTENDANT POCT ACTIVATED CLOTTING TIME - DOCKED DEVICE Routine 06/04/2024 12:45 PM TAPROOM ATTENDANT CG8 PLUS-ISTAT Routine 06/04/2024 12:19 PM TAPROOM ATTENDANT POCT ACTIVATED CLOTTING TIME - DOCKED DEVICE Routine 06/04/2024 12:15 PM TAPROOM ATTENDANT CG8 PLUS-ISTAT Routine 06/04/2024 11:52 AM TAPROOM ATTENDANT POCT ACTIVATED CLOTTING TIME - DOCKED DEVICE Routine 06/04/2024 11:45 AM TAPROOM ATTENDANT CG8 PLUS-ISTAT Routine 06/04/2024 11:21 AM TAPROOM ATTENDANT POCT ACTIVATED CLOTTING TIME - DOCKED DEVICE Routine 06/04/2024 11:15 AM TAPROOM ATTENDANT CG8 PLUS-ISTAT Routine 06/04/2024 10:46 AM TAPROOM ATTENDANT POCT ACTIVATED CLOTTING TIME - DOCKED DEVICE Routine 06/04/2024 10:45 AM TAPROOM ATTENDANT POCT ACTIVATED CLOTTING TIME - DOCKED DEVICE Routine 06/04/2024 9:48 AM TAPROOM ATTENDANT POCT ACTIVATED CLOTTING TIME - DOCKED DEVICE Routine 06/04/2024 8:34 AM TAPROOM ATTENDANT CG8 PLUS-ISTAT Routine 06/04/2024 8:33 AM TAPROOM ATTENDANT SC AN INTRODUCER Routine 06/04/2024 7:55 AM TAPROOM ATTENDANT SC AN SWAN CALVIN Routine 06/04/2024 7:55 AM TAPROOM ATTENDANT ART LINE PLACEMENT Routine 06/04/2024 7: 40 AM TAPROOM ATTENDANT CORONARY ARTERY BYPASS 06/04/2024 7:27 AM TAPROOM ATTENDANT CORONARY ARTERY DISEASE I25.10 Case Notes SCHED BY PHONE ALEJANDRO 05/06/2024 [facility] PRETEST 05/23 @ 0800 POCT GLUCOSE - RICHARD DOCKED DEVICE Routine 06/04/2024 6:53 AM TAPROOM ATTENDANT XR CHEST PA+LAT Routine 05/23/2024 9:36 AM TAPROOM ATTENDANT CAD (coronary artery disease), [place] coronary artery Preop testing MRSA SCREENING Routine 05/23/2024 9:30 AM TAPROOM ATTENDANT CAD (coronary artery disease), [place] coronary artery Preop testing ECG 12-LEAD Routine 05/23/2024 9:01 AM TAPROOM ATTENDANT CAD (coronary artery disease), [place] coronary artery Preop testing TYPE & SCREEN Routine 05/23/2024 8:10 AM TAPROOM ATTENDANT CAD (coronary artery disease), [place] coronary artery Preop testing PARTIAL THROMBOPLASTIN TIME,PTT Routine 05/23/2024 8:10 AM TAPROOM ATTENDANT CAD (coronary artery disease), [place] coronary artery Preop testing PROTHROMBIN TIME, VENOUS Routine 05/23/2024 8:10 AM TAPROOM ATTENDANT CAD (coronary artery disease), [place] coronary artery Preop testing HEMOGLOBIN, GLYCOSYLATED Routine 05/23/2024 8:10 AM TAPROOM ATTENDANT CAD (coronary artery disease), [place] coronary artery Preop testing COMPREHENSIVE METABOLIC PANEL Routine 05/23/2024 8:10 AM TAPROOM ATTENDANT CAD (coronary artery disease), [place] coronary artery Preop testing CBC W/DIFF AUTOMATED Routine 05/23/2024 8:10 AM TAPROOM ATTENDANT CAD (coronary artery disease), [place] coronary artery Preop testing USV VEIN MAPPING LOW BRITTNI RAKEL 05/23/2024 7:11 AM TAPROOM ATTENDANT Coronary artery disease of [place] artery of [place] heart with stable angina pectoris (CMS/HCC) Pre-operative cardiovascular examination HEMATOCRIT Routine 04/10/2024 9:07 AM TAPROOM ATTENDANT SOB (shortness of breath) Abnormal stress test CREATININE Routine 04/10/2024 9:07 AM TAPROOM ATTENDANT SOB (shortness of breath) Abnormal stress test UREA NITROGEN, BLOOD (BUN) QUANT Routine 04/10/2024 9:07 AM TAPROOM ATTENDANT SOB (shortness of breath) Abnormal stress test XA LHC POSS Routine 04/07/2024 8:49 AM TAPROOM ATTENDANT Coronary artery calcification seen on CAT scan SOB (shortness of breath) Abnormal stress test ECG 12-LEAD Routine 04/07/2024 7:53 AM TAPROOM ATTENDANT Abnormal stress test POCT GLUCOSE - RICHARD DOCKED DEVICE Routine 04/07/2024 7:10 AM TAPROOM ATTENDANT LIPID PANEL Routine 03/25/2024 7:59 AM CDT Coronary artery calcification seen on CAT scan SOB (shortness of breath) Abnormal stress test from Last 3 Months or Most Recently Relevant to Health Maintenance Results * (ABNORMAL) PRO BNP ([facility]) (06/23/2024 9:48 AM TAPROOM ATTENDANT) PRO-B TYPE NATRIURETIC PEPTIDE 749(H) <450 PG/ML 06/23/2024 10:28 AM TAPROOM ATTENDANT [facility] Comment: CUT POINTS ESTABLISHED BY [employer]ATIONAL [employer] ON NT PROBNP (ICON) STUDY (2006). AGE INDEPENDENT: <300 PG/ML HAS A 99% NEGATIVE PREDICTIVE VALUE FOR EXCLUDING ACUTE CHF <50 YEARS: >450 PG/ML IS CONSISTENT WITH ACUTE CHF 50-75 YEARS: >900 PG/ML IS CONSISTENT WITH ACUTE CHF >75 YEARS: >1800 PG/ML IS CONSISTENT WITH ACUTE CHF IN PATIENTS WITH RENAL INSUFFICIENCY (GFR <60), >1200 PG/ML YIELDS A DIAGNOSTIC SENSITIVITY AND SPECIFICITY OF 89% AND 72% FOR ACUTE CHF. 06/23/2024 9:48 AM TAPROOM ATTENDANT Sadia Chaudhry MD LABORATORY Final Result [facility] [address] [place] [address], [place] [phone] * (ABNORMAL) BASIC METABOLIC PANEL (06/23/2024 9:48 AM TAPROOM ATTENDANT) Only the most recent of5 resultswithin the time period is included. GLUCOSE 314(H) 70 - 99 MG/DL 06/23/2024 10:[address] [facility] BUN 17 7 - 18 MG/DL 06/23/2024 10:[address] [facility] CREATININE S/P/B 0.83 0.7 - 1.3 MG/DL 06/23/2024 10:[address] [facility] SODIUM S/P/B 130(L) 136 - 145 MMOL/L 06/23/2024 10:[address] [facility] POTASSIUM S/P/B 4.2 3.5 - 5.1 MMOL/L 06/23/2024 10:[address] [facility] CHLORIDE S/P/B 97 97 - 115 MMOL/L 06/23/2024 10:[address] [facility] CO2 28.2 21 - 32 MMOL/L 06/23/2024 10:[address] [facility] CALCIUM S/P/B 9.1 8.5 - 10.1 MG/DL 06/23/2024 10:28 AM [employer] ATTENDANT [facility] ANION GAP 4.8 2 - 10 MMOL/L 06/23/2024 10:28 AM [employer] ATTEND[employer] [facility] BUN CREATININE RATIO 20.4 6 - 26 06/23/2024 10:[address] [facility] GFR ESTIMATE >90 >90 ML/MIN/1.7 3 M2 06/23/2024 10:28 AM [employer] ATTENDANT [facility] Comment: NOTE: eGFR is not calculated for patients <18 years of age or gender unknown. This is an estimated GFR calculation using the new CKD EPI creatinine equation without race and so does not require a correction factor for race. This estimated GFR should not be used for calculating drug doses. 06/23/2024 9:48 AM TAPROOM ATTENDANT Sadia Chaudhry MD LABORATORY Final Result [facility] [address] [place] [address], [place] [phone] * XR CHEST PA+LAT (06/08/2024 9:40 AM TAPROOM ATTENDANT) Only the most recent of2 resultswithin the time period is included. Anatomical Region Laterality Modality Chest Radiographic Leigha ging 06/08/2024 9:42 AM TAPROOM ATTENDANT Impressions 06/08/2024 9:43 AM TAPROOM ATTENDANT IMPRESSION: Left atrial enlargement. Suspected small left effusion. Suspected left lower lung atelectasis or infiltrate. Referred By: Interpreted By: Sukhwinder Lau MD, 06/08/2024 9:42 AM Narrative 06/08/2024 9:43 AM TAPROOM ATTENDANT [facility] [address] [place], [place] [address] Procedure(s): XR CHEST PA+LAT Date of service: 06/08/2024 9:40 AM Provided clinical information: 73 years, Male, Post Op Cardiac Surgery Procedure and materials: PA and lateral Comparison studies: June 07, 2024. Findings: Patient is post sternotomy. Cardiac silhouette is within normal limits. Blunting left costophrenic angle due to small effusion. Slight loss of left hemidiaphragm due to atelectasis or infiltrate. Left atrial enlargement. Procedure Note Sukhwinder Lau MD - 06/08/[address] [address] Procedure(s): XR CHEST PA+LAT Date of service: 06/08/2024 9:40 AM Provided clinical information: 73 years, Male, Post Op Cardiac Surgery Procedure and materials: PA and lateral Comparison studies: June 07, 2024. Findings: Patient is post sternotomy. Cardiac silhouette is within normal limits. Blunting left costophrenicangle due to small effusion. Slight loss of left hemidiaphragm due toatelectasis or infiltrate. Left atrial enlargement. IMPRESSION: Left atrial enlargement. Suspected small left effusion. Suspected left lower lung atelectasis or infiltrate. Referred By: Interpreted By: Sukhwinder Lau MD, 06/08/2024 9:42 AM Sadia Chaudhry MD GENERAL IMAGING Final Result * (ABNORMAL) CBC W/DIFF AUTOMATED (06/08/2024 4:00 AM TAPROOM ATTENDANT) Only the most recent of4 resultswithin the time period is included. WBC 10.46 4.5 - 11.0 x10'3/uL 06/08/2024 5:02 AM TAPROOM ATTENDANT [facility] RBC 3.78(L) 4.70 - 6.10 x10'6/uL 06/08/2024 5:02 AM TAPROOM ATTENDANT [facility] HGB 11.4(L) 14.0 - 18.0 G/DL 06/08/2024 5:[address] [facility] HCT 33.6(L) 43.0 - 54.0 % 06/08/2024 5:[address] [facility] MCV 88.9 80.0 - 94.0 FL 06/08/2024 5:[address] [facility] MCH 30.2 27.0 - 31.0 PG 06/08/2024 5:[address] [facility] MCHC 33.9 32.0 - 36.0 G/DL 06/08/2024 5:[address] [facility] RDW 12.6 11.5 - 14.5 % 06/08/2024 5:[address] [facility] PLT 120(L) 130 - 400 x10'3/uL 06/08/2024 5:[address] [facility] MPV 11.2 9.3 - 12.2 FL 06/08/2024 5:[address] [facility] DIFFERENTIAL TYPE AUTOMATED DIFFERENTIAL 06/08/2024 5:[address] [facility] NEUTROPHILS % 70.0 % 06/08/2024 5:[address] [facility] LYMPHOCYTES % 16.0 % 06/08/2024 5:[address] [facility] MONOCYTES % 11.4 % 06/08/2024 5:[address] [facility] EOSINOPHILS 1.8 % 06/08/2024 5:[address] [facility] BASOPHILS 0.3 % 06/08/2024 5:[address] [facility] IMMATURE GRANS % 0.5 % 06/08/19 5:[address] [facility] ABS. NEUTROPHILS 7.33 1.80 - 7.70 x10'3/uL 06/08/2024 5:03 AM TAPROOM ATTENDANT [facility] ABS. LYMPHOCYTES 1.67 1.00 - 4.80 x10'3/uL 06/08/2024 5:03 AM TAPROOM ATTENDANT [facility] ABS. MONOCYTES 1.19(H) 0.30 - 0.82 x10'3/uL 06/08/2024 5:03 AM TAPROOM ATTENDANT [facility] ABS. EOSINOPHILS 0.19 0.04 - 0.54 x10'3/uL 06/08/2024 5:03 AM TAPROOM ATTENDANT [facility] ABS. BASOPHILS 0.03 0.01 - 0.08 x10'3/uL 06/08/2024 5:03 AM TAPROOM ATTENDANT [facility] ABS. IMMATURE GRANULOCYTES 0.05 0.00 - 0.49 x10'3/uL 06/08/2024 5:03 AM TAPROOM ATTENDANT [facility] 06/08/2024 4:00 AM TAPROOM ATTENDANT us Sadia Chaudhry MD LABORATORY Final Result [address] [address], [place] [phone] * (ABNORMAL) POCT glucose (06/07/2024 8:00 PM TAPROOM ATTENDANT) Only the most recent of50 resultswithin the time period is included. [facility] GLUCOSE POC 278(H) 70 - 99 mg/dL 06/07/2024 8:07 PM TAPROOM ATTENDANT [facility] 06/07/2024 8:00 PM TAPROOM ATTENDANT us Sadia Chaudhry MD POCT ORDERABLES - DEVICE Final Result [address] [address], * XR CHEST PORTABLE (06/07/2024 9:46 AM TAPROOM ATTENDANT) Only the most recent of3 resultswithin the time period is included. Anatomical Region Laterality Modality Chest Radiographic Leigha ging 06/07/2024 9:49 AM TAPROOM ATTENDANT Impressions 06/07/2024 9:50 AM TAPROOM ATTENDANT IMPRESSION:===== Interval removal left chest tube. No pneumothorax. Catheter sheath left subclavian vein remains in place. Referred By: Interpreted By: Juan Ramon Archuleta MD, 06/07/2024 9:49 AM Narrative 06/07/2024 9:50 AM TAPROOM ATTENDANT [place] [address] EXAMINATION: CHEST RADIOGRAPH SINGLE VIEW Exam date/time: 06/07/2024 9:39 AM Reason For Exam: left chest drain removal Comparison: 06/06/2024 Technique: Upright AP view of the chest Findings: Interval removal left chest tube. No pneumothorax. Catheter sheath left subclavian vein remains in place. No acute findings. Prior CABG. ===== Procedure Note Juan Ramon Archuleta MD - 06/07/[address] [address] EXAMINATION: CHEST RADIOGRAPH SINGLE VIEW Exam date/time: 06/07/2024 9:39 AM Reason For Exam: left chest drain removal Comparison: 06/06/2024 Technique: Upright AP view of the chest Findings: Interval removal left chest tube. No pneumothorax. Catheter sheath left subclavian vein remains in place. No acutefindings. Prior CABG. ===== IMPRESSION:===== Interval removal left chest tube. No pneumothorax. Catheter sheath left subclavian vein remains in place. Referred By: Interpreted By: Juan Ramon Archuleta MD, 06/07/2024 9:49 AM us Sadia Chaudhry MD GENERAL IMAGING Final Result * ECG 12 lead (06/05/2024 4:56 AM TAPROOM ATTENDANT) Only the most recent of3 resultswithin the time period is included. 06/05/2024 4:56 AM TAPROOM ATTENDANT Narrative [facility] - 06/05/2024 3:[address] [facility] Test Date: 2024-06-05 Pat Name: NITHIN BERNAL Department: 40 Room: [id number] Gender: Male Standard Machine Stitcher: [id number] : 1950 Requested By: SADIA CHAUDHRY Order Number: [id number] Reading : Gonzalez Zhu Measurements Intervals [place] Rate: 91 P: 45 SC: 218 QRS: -24 QRSD: 98 T: -14 QT: 353 QTc: 435 Interpretive Statements SINUS RHYTHM WITH FIRST DEGREE AV BLOCK POSSIBLE ANTERIOR MYOCARDIAL INFARCTION , OF INDETERMINATE AGE [30 ms Q WAVE IN V3/V4, OR R < 0.2 mV IN V4] Compared to ECG 05/23/2024 09:01:48 Myocardial infarct finding now present Sinus bradycardia no longer present Left-axis deviation no longer present Poor R-wave progression no longer present OOM ATTENDANT Procedure Note Gonzalez Zhu MD - 06/05/[address] [facility] [address] Test Date: 2024-06-05 Pat Name: NITHIN BERNAL Department: 40 Room: [id number] Gender: Male Standard Machine Stitcher: [id number] : 1950 Requested By: SADIA CHAUDRHY Order Number: [id number] Reading TRACIE Zhu Measurements Intervals [place] Rate: 91 P: 45 SC: 218 QRS: -24 QRSD: 98 T: -14 QT: 353 QTc: 435 Interpretive Statements SINUS RHYTHM WITH FIRST DEGREE AV BLOCK POSSIBLE ANTERIOR MYOCARDIAL INFARCTION , OF INDETERMINATE AGE [30 ms QWAVE IN V3/V4, OR R < 0.2 mV IN V4] Compared to ECG 05/23/2024 09:01:48 Myocardial infarct finding now present Sinus bradycardia no longer present Left-axis deviation no longer present Poor R-wave progression no longer present OOM ATTENDANT us Sadia Chaudhry MD ECG ORDERABLES Final Result [facility] * (ABNORMAL) CG8 Plus-ISTAT (06/05/2024 4:35 AM TAPROOM ATTENDANT) Only the most recent of10 resultswithin the time period is included. [facility] TECH CODE 605,[id number] 06/05/2024 4:[address] [facility] PH ARTERIAL 7.40 7.35 - 7.45 06/05/2024 4:[address] [facility] PCO2 37.1 35.0 - 45.0 MM HG 06/05/2024 4:[address] [facility] PO2 34(LL) 80.0 - 100.0 MM HG 06/05/2024 4:[address] [facility] Comment:POINT OF CARE TESTIN G, CRITICAL RESULT GIVEN TO WOODEN BOX MAKER. BASE DEFICIT 2.0 MEQ/L 06/05/2024 4:40 AM TAPROOM ATTENDANT [facility] BICARB ARTERIAL 22.9 22.0 - 26.0 MEQ/L 06/05/2024 4:[address] [facility] TOTAL CO2 ARTERIAL 24 MEQ/L 06/05/2024 4:[address] [facility] O2 Saturation 67.0(LL) 90.0 - 100.0 % 06/05/2024 4:[address] [facility] Comment:POINT OF CARE TESTIN G, CRITICAL RESULT GIVEN TO WOODEN BOX MAKER. SODIUM BLOOD GAS 136 135.0 - 145.0 MMOL/L 06/05/2024 4:[address] [facility] POTASSIUM BLOOD GAS 3.8 3.5 - 4.5 MMOL/L 06/05/2024 4:[address] [facility] CALCIUM BLOOD GAS 1.2 1.1 - 1.3 MMOL/L 06/05/2024 4:[address] [facility] GLUCOSE POC 145(H) 70 - 110 MG/DL 06/05/2024 4:[address] [facility] HEMATOCRIT BLOOD GAS 33.0(L) 43.0 - 54.0 % 06/05/2024 4:[address] [facility] HEMOGLOBIN BLOOD GAS 11.2(L) 14.0 - 18.0 G/DL 06/05/2024 4:[address] [facility] 06/05/2024 4:35 AM TAPROOM ATTENDANT Sadia Chaudhry MD POINT OF CARE TEST ORDERABLES F inal Result [facility] [address] [place] [address], [place] [phone] * (ABNORMAL) COMPREHENSIVE METABOLIC PANEL (06/05/2024 4:30 AM TAPROOM ATTENDANT) Only the most recent of2 resultswithin the time period is included. GLUCOSE 148(H) 70 - 99 MG/DL 06/05/2024 5:[address] [facility] BUN 14 7 - 18 MG/DL 06/05/2024 5:[address] [facility] CREATININE S/P/B 0.79 0.7 - 1.3 MG/DL 06/05/2024 5:[address] [facility] SODIUM S/P/B 135(L) 136 - 145 MMOL/L 06/05/2024 5:[address] [facility] POTASSIUM S/P/B 3.8 3.5 - 5.1 MMOL/L 06/05/2024 5:[address] [facility] CHLORIDE S/P/B 106 97 - 115 MMOL/L 06/05/2024 5:[address] [facility] CO2 26.0 21 - 32 MMOL/L 06/05/2024 5:[address] [facility] CALCIUM S/P/B 8.5 8.5 - 10.1 MG/DL 06/05/2024 5:[address] [facility] BILIRUBIN TOTAL S/P/B 0.8 0.2 - 1.2 MG/DL 06/05/2024 5:[address] [facility] Comment: THIS ASSAY IS NOT RECOMMENDED FOR PATIENTS UNDERGOING TREATMENT WITH ELTROMBOPAG DUE TO THE POTENTIAL FOR FALSELY ELEVATED RESULTS. TOTAL PROTEIN S/P/B 5.7(L) 6.4 - 8.2 G/DL 06/05/2024 5:[address] [facility] ALBUMIN S/P/B 3.2(L) 3.4 - 5.0 G/DL 06/05/2024 5:[address] [facility] AST 56(H) 15 - 37 U/L 06/05/2024 5:[address] [facility] ALT 24 16 - 60 U/L 06/05/2024 5:[address] [facility] ALKALINE PHOSPHATASE S/P/B 40(L) 50 - 136 U/L 06/05/2024 5:[address] [facility] ANION GAP 3.0 2 - 10 MMOL/L 06/05/2024 5:[address] [facility] BUN CREATININE RATIO 17.6 6 - 26 06/05/2024 5:[address] [facility] A/G RATIO 1.3 1.0 - 2.0 RATIO 06/05/2024 5:[address] [facility] GFR ESTIMATE >90 >90 ML/MIN/1.7 3 M2 06/05/2024 5:[address] [facility] Comment: NOTE: eGFR is not calculated for patients <18 years of age or gender unknown. This is an estimated GFR calculation using the new CKD EPI creatinine equation without race and so does not require a correction factor for race. This estimated GFR should not be used for calculating drug doses. 06/05/2024 4:30 AM TAPROOM ATTENDANT Sadia Chaudhry MD LABORATORY Final Result [facility] [address] [place] [address], [place] [phone] * (ABNORMAL) CBC, AUTO, NO DIFF (06/05/2024 4:30 AM TAPROOM ATTENDANT) Only the most recent of2 resultswithin the time period is included. WBC 17.70(H) 4.5 - 11.0 x10'3/uL 06/05/2024 5:[address] [facility] RBC 3.75(L) 4.70 - 6.10 x10'6/uL 06/05/2024 5:[address] [facility] HGB 11.4(L) 14.0 - 18.0 G/DL 06/05/2024 5:[address] [facility] HCT 32.9(L) 43.0 - 54.0 % 06/05/2024 5:[address] [facility] MCV 87.7 80.0 - 94.0 FL 06/05/2024 5:[address] [facility] MCH 30.4 27.0 - 31.0 PG 06/05/2024 5:[address] [facility] MCHC 34.7 32.0 - 36.0 G/DL 06/05/2024 5:[address] [facility] RDW 12.4 11.5 - 14.5 % 06/05/2024 5:[address] [facility] PLT 102(L) 130 - 400 x10'3/uL 06/05/2024 5:[address] [facility] MPV 11.0 9.3 - 12.2 FL 06/05/2024 5:[address] [facility] 06/05/2024 4:30 AM TAPROOM ATTENDANT Sadia Chaudhry MD LABORATORY Final Result [facility] [address] [place] [address], * (ABNORMAL) ARTERIAL BLOOD GAS (06/04/2024 9:23 PM TAPROOM ATTENDANT) Only the most recent of2 resultswithin the time period is included. PH ARTERIAL 7.41 7.35 - 7.45 06/04/2024 9:[address] [facility] PCO2 38.0 35.0 - 45.0 MMHG 06/04/2024 9:[address] [facility] PO2 82.0(L) 83.0 - 108.0 MMHG 06/04/2024 9:[address] [facility] TOTAL CO2 ARTERIAL 25.3(H) 19.0 - 24.0 MMOL/L 06/04/2024 9:[address] [facility] BASE DEFICIT 0.3 0.0 - 3.0 MMOL/L 06/04/2024 9:[address] [facility] O2 SATURATION 96 94.0 - 98.0 % 06/04/2024 9:[address] [facility] BICARB ARTERIAL 24.1 21.0 - 28.0 MMOL/L 06/04/2024 9:[address] [facility] O2 ADMIN ARTERIAL 30 06/04/2024 9:[address] [facility] DRAW SITE ARTERIAL ARTERIAL LINE DRAW 06/04/2024 9:[address] [facility] 06/04/2024 9:23 PM TAPROOM ATTENDANT Janet Morales MD LABORATORY Final Result [facility] [address] [place] [address], * POTASSIUM, SERUM (06/04/2024 7:45 PM TAPROOM ATTENDANT) [facility] POTASSIUM S/P/B 4.2 3.5 - 5.1 MMOL/L 06/04/2024 8:11 PM TAPROOM ATTENDANT [facility] 06/04/2024 7:45 PM TAPROOM ATTENDANT Sadia Chaudhry MD LABORATORY Final Result [facility] [address] [place] [address], [place] [phone] * (ABNORMAL) HEMOGLOBIN AND HEMATOCRIT (06/04/2024 3:30 PM TAPROOM ATTENDANT) HGB 12.1(L) 14.0 - 18.0 G/DL 06/04/2024 3:48 PM TAPROOM ATTENDANT [facility] HCT 34.4(L) 43.0 - 54.0 % 06/04/2024 3:48 PM TAPROOM ATTENDANT [facility] 06/04/2024 3:30 PM TAPROOM ATTENDANT us Sadia Chaudhry MD LABORATORY Final Result Performing Organization Address City/[facility]/ZIP Co de Phone Number [facility] [address] [place] [address], [place] [phone] * (ABNORMAL) PLATELET COUNT, AUTO (06/04/2024 3:30 PM TAPROOM ATTENDANT) PLT 107(L) 130 - 400 x10'3/uL 06/04/2024 3:48 PM TAPROOM ATTENDANT [facility] MPV 10.6 9.3 - 12.2 FL 06/04/2024 3:48 PM TAPROOM ATTENDANT [facility] 06/04/2024 3:30 PM TAPROOM ATTENDANT us Sadia Chaudhry MD LABORATORY Final Result Performing Organization Address [facility] Co de Phone Number [facility] [address] [place] [address], [place] [phone] * (ABNORMAL) LACTIC ACID (06/04/2024 3:30 PM TAPROOM ATTENDANT) LACTIC ACID VENOUS 3.1(H) 0.4 - 2.0 MMOL/L 06/04/2024 4:13 PM TAPROOM ATTENDANT [facility] Comment: Critical Result(s) Called at: 16:12:28 on 06/04/2024 by: LAWANDA GUTIERREZ to and read back by:DAVID LEOS AN ORDER FOR A REPEAT LACTIC ACID TEST IS REQUIRED WITHIN 6 HOURS OF DIAGNOSIS ON A PATIENT WITH SEVERE SEPSIS. 06/04/2024 3:30 PM TAPROOM ATTENDANT us Sadia Chaudhry MD LABORATORY Final Result [facility] [address] [place] [address], [place] [phone] * ELECTROLYTE PANEL (06/04/2024 3:30 PM TAPROOM ATTENDANT) SODIUM S/P/B 137 136 - 145 MMOL/L 06/04/2024 4:10 PM TAPROOM ATTENDANT [facility] POTASSIUM S/P/B 3.8 3.5 - 5.1 MMOL/L 06/04/2024 4:10 PM TAPROOM ATTENDANT [facility] CHLORIDE S/P/B 108 97 - 115 MMOL/L 06/04/2024 4:10 PM TAPROOM ATTENDANT [facility] CO2 25.8 21 - 32 MMOL/L 06/04/2024 4:10 PM TAPROOM ATTENDANT [facility] ANION GAP 3.2 2 - 10 MMOL/L 06/04/2024 4:10 PM TAPROOM ATTENDANT [facility] 06/04/2024 3:30 PM TAPROOM ATTENDANT us Sadia Chaudhry MD LABORATORY Final Result [facility] [address] [place] [address], [place] [phone] * (ABNORMAL) GLUCOSE BLOOD, QNT (06/04/2024 3:30 PM TAPROOM ATTENDANT) GLUCOSE 109(H) 70 - 99 MG/DL 06/04/2024 4:10 PM TAPROOM ATTENDANT [facility] 06/04/2024 3:30 PM TAPROOM ATTENDANT us Sadia Chaudhry MD LABORATORY Final Result [facility] [address] [place] [address], * USE TRANSESOPHAGEAL ECHO (06/04/2024 3:19 PM TAPROOM ATTENDANT) Anatomical Region Laterality Modality Cardiac Echocardiogram 06/04/2024 8:05 AM TAPROOM ATTENDANT Narrative 06/06/2024 11:42 AM TAPROOM ATTENDANT PK Report Pat.Name: NITHIN BERNAL Pat.ID: [id number] St.Date: 06/04/2024 Exam Time: 8:05:00 AM Study Type:TRANSESOPHAGEAL ECHO (PK) Height: 72 in Weight: 248 lb BSA: 2.33 m2 Age: 2 1950,73Y Sex: M Pat. Stat.:Inpatient Room: [facility] Reason for Study:Coronary artery disease, Coronary bypass surgery Procedures: 2D, Doppler, Color Flow, Intraoperative, Transesophageal Race: W ++++++++++++++++++++++++++++++++++++ SUMMARY: ++++++++++++++++++++++++++++++++++++ Limited interoperative PK Normal LV size and systolic function Estimated EF of > 50% No significant valve dysfunction. ++++++++++++++++++++++++++++++++++++ FINDINGS: ++++++++++++++++++++++++++++++++++++ PK: The patient was counseled and an informed consent was obtained. The transesophageal probe was passed by anesthesia. Patient was under general anesthesia. Procedure was performed in the OR with anesthesia personnel present. LV: The left ventricular size is normal. The left ventricular systolic function is normal. Estimated left ventricular ejection fraction is 50-55%. AV: The aortic valve is trileaflet. No evidence of aortic valve stenosis. Trace aortic regurgitation. MV: No evidence of significant mitral regurgitation. ++++++++++++++++++++++++++++++++++++ PK: ++++++++++++++++++++++++++++++++++++ Meds: Propofol or Diprivan administered by Anesthesia Staff <Electronic Signature> 06/06/2024 11:42 AM Gonzalez Zhu M.D. Procedure Note Gonzalez Zhu MD - 06/06/2024 PK Report Pat.Name: NITHIN BERNAL Pat.ID: [id number] .Date: 06/04/2024 Exam Time: 8:05:00 AM Study Type:TRANSESOPHAGEAL ECHO (PK) Height: 72 in Weight: 248 lb BSA: 2.33 m2 Age: 2 1950,73Y Sex: M Pat. Stat.:Inpatient Room: [facility] Reason for Study:Coronary artery disease, Coronary bypass surgery Procedures: 2D, Doppler, Color Flow, Intraoperative, Transesophageal Race: W ++++++++++++++++++++++++++++++++++++ SUMMARY: ++++++++++++++++++++++++++++++++++++ Limited interoperative PK Normal LV size and systolic function Estimated EF of > 50% No significant valve dysfunction. ++++++++++++++++++++++++++++++++++++ FINDINGS: ++++++++++++++++++++++++++++++++++++ PK: The patient was counseled and an informed consent was obtained. The transesophageal probe was passed by anesthesia. Patient was under general anesthesia. Procedure was performed in the OR with anesthesia personnel present. LV: The left ventricular size is normal. The left ventricular systolic function is normal. Estimated left ventricular ejection fraction is 50-55%. AV: The aortic valve is trileaflet. No evidence of aortic valve stenosis. Trace aortic regurgitation. MV: No evidence of significant mitral regurgitation. ++++++++++++++++++++++++++++++++++++ PK: ++++++++++++++++++++++++++++++++++++ Meds: Propofol or Diprivan administered by Anesthesia Staff <Electronic Signature> 06/06/2024 11:42 AM Gonzalez Zhu M.D. us Sadia Chaudhry MD ECHO Final Result * (ABNORMAL) POCT activated clotting time (06/04/2024 1:22 PM TAPROOM ATTENDANT) Only the most recent of8 resultswithin the time period is included. ACTIVATED CLOTTING TIME (ACT HMT OR LMT) 100(L) 113 - 149 SEC 06/04/2024 5:23 PM TAPROOM ATTENDANT [facility] 06/04/2024 1:22 PM TAPROOM ATTENDANT us Sadia Chaudhry MD POCT ORDERABLES - DEVICE Final Result Performing Organization Address [facility] Co de Phone Number [facility] [address] [place] [address], [place] [phone] * PARTIAL THROMBOPLASTIN TIME,PTT (06/04/2024 1:21 PM TAPROOM ATTENDANT) Only the most recent of2 resultswithin the time period is included. PTT 31.2 25.1 - 36.5 SEC 06/04/2024 2:12 PM TAPROOM ATTENDANT [facility] 06/04/2024 1:21 PM TAPROOM ATTENDANT us Sadia Chaudhry MD LABORATORY Final Result Performing Organization Address [facility]/ZIP Co de Phone Number [facility] [address] [place] [address], [place] [phone] * (ABNORMAL) PROTIME/INR, VENOUS (06/04/2024 1:21 PM TAPROOM ATTENDANT) Only the most recent of2 resultswithin the time period is included. PROTIME 18.9(H) 10.2 - 12.9 SEC 06/04/2024 2:12 PM TAPROOM ATTENDANT [facility] INR 1.7 06/04/2024 2:12 PM TAPROOM ATTENDANT [facility] Comment: Recommended INR Therapeutic Goals: 2.0-3.0 Routine Therapy 2.5-3.5 Mechanical Prosthetic Valves (High Risk) 06/04/2024 1:21 PM TAPROOM ATTENDANT us Sadia Chaudhry MD LABORATORY Final Result Performing Organization Address City/[facility]/ZIP Co de Phone Number [facility] [address] [place] [address], [place] [phone] * (ABNORMAL) FIBRINOGEN (06/04/2024 1:21 PM TAPROOM ATTENDANT) FIBRINOGEN 184(L) 200 - 393 MG/DL 06/04/2024 2:12 PM TAPROOM ATTENDANT [facility] 06/04/2024 1:21 PM TAPROOM ATTENDANT us Sadia Chaudhry MD LABORATORY Final Result [facility] [address] [place] [address], [place] [phone] * SC AN PASHA SIMPSON, SC AN INTRODUCER (06/04/2024 7:55 AM TAPROOM ATTENDANT) Narrative Marky Camargo MD - 06/04/2024 7:55 AM TAPROOM ATTENDANT Marky Camargo MD 06/04/2024 8:33 AM Taloga/Introducer Placement: Date/Time: 06/04/2024 7:55 AM Patient Location: OR Placed Outside of This Facility?: No Procedure: Introducer with Taloga Calvin Technique Used: Maximum Sterile Technique used, hand hygiene, Chlorhexadine skin prep, blood return present and guidewires used accounted for Location: Subclavian Size: 9.0 Cambodian Orientation: Left Insertion Attempts: 1 Therapy Type: PA pressures, central IV access, central fluids, vasopressors, blood products and CVC Securement Method: Sutured, taped and skin barrier Additional Notes: Patient taken to OR for heart surgery. Prior, the patient was consented for central line and pulmonary artery placement. Placed in trendelenburg, chlroprep prep, sterile towels placed. Sterile gown, gloves, and mask. Seeker needle used. 18G introducer needle used to locate subclavian vein. + seldinger technique. Catheter placed and sutured in x 2. Introducer port aspirated and flushed well. Sterile drape placed over line to place PA catheter. All ports flushed on catheter, balloon tested, then catheter placed in pulmonary artery. Catheter left in at 48 cm with good PA waveform. No immediate complications. Sterile tegaderm dressing applied. Marky Camargo MD [place] ANESTHESIA Final Result * ART LINE PLACEMENT (06/04/2024 7:40 AM TAPROOM ATTENDANT) Marky Chaidez MD - 06/04/2024 7:40 AM TAPROOM ATTENDANT Marky Camargo MD 06/04/2024 8:31 AM Art Line Date/Time: 06/04/2024 7:40 AM Performed by: Marky Camargo MD Authorized by: Marky Camargo MD Patient Location: OR Placed Outside of This Facility?: No Size: 20 Orientation: Left Location: Radial Local Anesthetic: None Insertion Attempts: 1 Ultrasound-guided Placement: No Secure Method: Taped Patient Tolerance: Tolerated well Consent obtained pre-operatively for arterial line placement in operating room prior to surgery. Radial pulse palpated on left wrist. Area prepped with Chlor-Prep. 20G Arrow catheter placed in left radial artery x 1 attempts. Secured with tegaderm. Wrist rest applied. No immediate complications. Marky Camargo MD [place] ANESTHESIA Edited Result - Final * MRSA SCREENING (05/23/2024 9:30 AM TAPROOM ATTENDANT) SPEC DESCRIPTION NASAL 05/23/2024 7:52 AM TAPROOM ATTENDANT [facility] SPECIAL REQUESTS NO SPECIAL REQUEST 05/23/2024 7:52 AM TAPROOM ATTENDANT [facility] CULTURE RESULT NO METHICILLIN RESISTANT STAPHYLOCOCCUS AUREUS ISOLATED 05/24/2024 12:13 PM TAPROOM ATTENDANT [facility] SPECIMEN FROM INTERNAL NOSE / Unknown 05/23/2024 9:30 AM TAPROOM ATTENDANT 05/23/2024 9:41 AM TAPROOM ATTENDANT Sadia Chaudhry MD MICROBIOLOGY - GENERAL ORDERABL ES Final Result Performing Organization Address City/[facility]/ZIP Co de Phone Number [facility] [address] [place] [phone], [place] [phone] * (ABNORMAL) HEMOGLOBIN, GLYCATED (05/23/2024 8:10 AM TAPROOM ATTENDANT) HGB A1C 8.6(H) <5.7 % 05/23/2024 10:29 AM TAPROOM ATTENDANT [facility] Comment: ADA GUIDELINES 2010 5.7 TO 6.4% INCREASED RISK OF DIABETES > OR = 6.5% CONSISTENT WITH DIABETES ESTIMATED AVG GLUCOSE 200 mg/dL 05/23/2024 10:29 AM TAPROOM ATTENDANT [facility] 05/23/2024 8:10 AM TAPROOM ATTENDANT Sadia Chaudhry MD LABORATORY Final Result [facility] [address] [place] [address], [place] [phone] * TYPE & SCREEN - Verify expiration date is current (05/23/2024 8:10 AM TAPROOM ATTENDANT) UNITS ORDERED 4 06/04/2024 7:[address] [facility] ABO/RH O NEGATIVE 05/23/2024 10:[address] [facility] ANTIBODY SCREEN NEGATIVE 10:[address] [facility] SAMPLE EXPIRATION 06/07/2024,23 59 06/04/2024 7:[address] [facility] BB COMMENT NO HISTORY OF TRANSFUSIONS, OR ANTIBODIES, NEW SPECIMEN NOT NEEDED 06/04/2024 7:[address] [facility] BLOOD UNIT NUMBER [id number] 06/04/2024 7:[address] [facility] PRODUCT: PC LEUKO PHERE BAG2 06/04/2024 7:[address] [facility] UNIT DIVISION 00 06/04/2024 7:[address] [facility] BLOOD UNIT STATUS UNIT RELEASED 06/08/2024 6:[address] [facility] TRANSFUSION STATUS OK TO TRANSFUSE 06/04/2024 7:[address] [facility] CROSSMATCH COMPATIBLE-EX M 06/04/2024 7:[address] [facility] BLOOD UNIT NUMBER [id number] 06/04/2024 7:[address] [facility] PRODUCT: PC LEUKOPOOR 06/04/2024 7:[address] [facility] UNIT DIVISION 00 06/04/2024 7:[address] [facility] BLOOD UNIT STATUS UNIT RELEASED 06/04/2024 4:[address] [facility] TRANSFUSION STATUS OK TO TRANSFUSE 06/04/2024 7:[address] [facility] CROSSMATCH COMPATIBLE-EX M 06/04/2024 7:[address] [facility] BLOOD UNIT NUMBER [id number] 06/04/2024 7:20 AM TAPROOM ATTENDANT [facility] PRODUCT: PC LEUKO PHERE BAG1 06/04/2024 7:20 AM TAPROOM ATTENDANT [facility] UNIT DIVISION 00 06/04/2024 7:20 AM TAPROOM ATTENDANT [facility] BLOOD UNIT STATUS UNIT RELEASED 06/04/2024 4:32 PM TAPROOM ATTENDANT [facility] TRANSFUSION STATUS OK TO TRANSFUSE 06/04/2024 7:20 AM TAPROOM ATTENDANT [facility] CROSSMATCH COMPATIBLE-EX M 06/04/2024 7:20 AM TAPROOM ATTENDANT [facility] BLOOD UNIT NUMBER [id number] 06/04/2024 7:20 AM TAPROOM ATTENDANT [facility] PRODUCT: PC LEUKOPOOR 06/04/2024 7:20 AM TAPROOM ATTENDANT [facility] UNIT DIVISION 00 06/04/2024 7:20 AM TAPROOM ATTENDANT [facility] BLOOD UNIT STATUS UNIT RELEASED 06/04/2024 4:28 PM TAPROOM ATTENDANT [facility] TRANSFUSION STATUS OK TO TRANSFUSE 06/04/2024 7:20 AM TAPROOM ATTENDANT [facility] CROSSMATCH COMPATIBLE-EX M 06/04/2024 7:20 AM TAPROOM ATTENDANT [facility] 05/23/2024 8:10 AM TAPROOM ATTENDANT us Sadia Chaudhry MD BLOOD BANK TEST ORDERABLES Celina l Result [facility] [address] [place] [address], [place] [phone] * USV VEIN MAPPING LOW BRITTNI (05/23/2024 7:11 AM TAPROOM ATTENDANT) Anatomical Region Laterality Modality Extremity Vascular Ultraso und 05/23/2024 6:38 AM TAPROOM ATTENDANT Narrative 05/25/2024 9:31 PM TAPROOM ATTENDANT VEIN MAPPING FOR BYPASS BILATERAL LOWER EXTREMITY VASCULAR LAB Pat.Name: NITHIN BERNAL Pat.ID: [id number] .Date: 05/23/2024 Refer.MD: Isela Garcia Exam Time: 6:38:00 AM Study Type:MARA VS Fadi Mapping Bypass Legs BRITTNI Height: 71 in Age: 2 1950,73Y Sex: M Sonogrphr: Aydee Way RVT Pat. Stat.:Outpatient History / Clinical:Preop vein mapping for CABG PMH, Diabetes, Dyslipidemia, Hypertension, Family history CAD Procedures: Aponte scale, Color Doppler imaging, Doppler Spectral Analysis Race: W ++++++++++++++++++++++++++++++++++++ SUMMARY: ++++++++++++++++++++++++++++++++++++ Jackelin Mapping Vein Diameter Criteria: CABG = 2.0-4.0 mm. Extremity Bypass = >2.0 mm. Hemodialysis AVF = >2.0 mm Rad/Uln, >3.0 Brac/Fem AVF The mapped right great saphenous, right small saphenous, left great saphenous veins are >2.0 mm. diameter. There are chronic character venous defects noted in the left small saphenous veins. The proximal deep veins are patent with normal flow in a limited evaluation. CONCLUSION: Adequate right greater saphenous, right small saphenous vein for bypass. Adequate left greater saphenous vein for bypass. ++++++++++++++++++++++++++++++++++++ MEASUREMENTS: ++++++++++++++++++++++++++++++++++++ REFLUX Right Prox Thigh GSV Prox Thigh 11.3 mm Right Mid Thigh GSV Mid Thigh 4.1 mm Right Dist Thigh/AK GSV Dist Thigh 3.6 mm Right Mid Calf GSV Mid Calf 1.9 mm Right Prox Calf GSV Prox Calf 3.7 mm Left Prox Thigh GSV Prox Thigh 5.2 mm Left Mid Thigh GSV Mid Thigh 3.1 mm DOPPLER Right Diameter 1.13 cm Left Diameter 0.52 cm LSV Right LSV Far D 0.2 cm LEVEINS Right Dist Thigh/AK Dist Thigh GSV 37 mm Right Mid Thigh Mid Thigh GSV A 36 mm Right Prox Thigh Prox Thigh GSV 41 mm Right SFJ SFJ GSV AP 11.3 mm Right GSV Prox Calf GSV Prox Calf A 19 mm Right GSV Mid Calf GSV Mid Calf AP 19 mm Right GSV Dist Calf GSV Dist Calf A 20 mm Right SSV Dist Calf SSV Dist Calf A 19 mm Right SSV Mid Calf SSV Mid Calf AP 33 mm Right SSV Prox Calf SSV Prox Calf A 38 mm Right Knee Knee GSV AP 20 mm Left SFJ SFJ GSV AP 72 mm Left Prox Thigh Prox Thigh GSV 52 mm Left Mid Thigh Mid Thigh GSV A 30 mm Left Dist Thigh/AK Dist Thigh GSV 20 mm Left Knee Knee GSV AP 20 mm Left GSV Prox Calf GSV Prox Calf A 17 mm Left GSV Mid Calf GSV Mid Calf AP 18 mm <Electronic Signature> 05/25/2024 09:31 PM Stan Guzman M.D. Procedure Note Stan Guzman MD - 05/25/2024 VEIN MAPPING FOR BYPASS BILATERAL LOWER EXTREMITY VASCULAR LAB Pat.Name: NITHIN BERNAL Pat.ID: [id number] .Date: 05/23/2024 Refer.MD: Isela Garcia Exam Time: 6:38:00 AM Study Type:MARA VS Fadi Mapping Bypass Legs BRITTNI Height: 71 in Age: 2 1950,73Y Sex: M Sonogrphr: Aydee Way RVT Pat. Stat.:Outpatient History / Clinical:Preop vein mapping for CABG PMH, Diabetes, Dyslipidemia, Hypertension, Family history CAD Procedures: Aponte scale, Color Doppler imaging, Doppler Spectral Analysis Race: W ++++++++++++++++++++++++++++++++++++ SUMMARY: ++++++++++++++++++++++++++++++++++++ Jackelin Mapping Vein Diameter Criteria: CABG = 2.0-4.0 mm. Extremity Bypass = >2.0 mm. Hemodialysis AVF = >2.0 mm Rad/Uln, >3.0 Brac/Fem AVF The mapped right great saphenous, right small saphenous, left great saphenous veins are >2.0 mm. diameter. There are chronic character venous defects noted in the left small saphenous veins. The proximal deep veins are patent with normal flow in a limited evaluation. CONCLUSION: Adequate right greater saphenous, right small saphenous vein for bypass. Adequate left greater saphenous vein for bypass. ++++++++++++++++++++++++++++++++++++ MEASUREMENTS: ++++++++++++++++++++++++++++++++++++ REFLUX Right Prox Thigh GSV Prox Thigh 11.3 mm Right Mid Thigh GSV Mid Thigh 4.1 mm Right Dist Thigh/AK GSV Dist Thigh 3.6 mm Right Mid Calf GSV Mid Calf 1.9 mm Right Prox Calf GSV Prox Calf 3.7 mm Left Prox Thigh GSV Prox Thigh 5.2 mm Left Mid Thigh GSV Mid Thigh 3.1 mm DOPPLER Right Diameter 1.13 cm Left Diameter 0.52 cm LSV Right LSV Far D 0.2 cm LEVEINS Right Dist Thigh/AK Dist Thigh GSV 37 mm Right Mid Thigh Mid Thigh GSV A 36 mm Right Prox Thigh Prox Thigh GSV 41 mm Right SFJ SFJ GSV AP 11.3 mm Right GSV Prox Calf GSV Prox Calf A 19 mm Right GSV Mid Calf GSV Mid Calf AP 19 mm Right GSV Dist Calf GSV Dist Calf A 20 mm Right SSV Dist Calf SSV Dist Calf A 19 mm Right SSV Mid Calf SSV Mid Calf AP 33 mm Right SSV Prox Calf SSV Prox Calf A 38 mm Right Knee Knee GSV AP 20 mm Left SFJ SFJ GSV AP 72 mm Left Prox Thigh Prox Thigh GSV 52 mm Left Mid Thigh Mid Thigh GSV A 30 mm Left Dist Thigh/AK Dist Thigh GSV 20 mm Left Knee Knee GSV AP 20 mm Left GSV Prox Calf GSV Prox Calf A 17 mm Left GSV Mid Calf GSV Mid Calf AP 18 mm <Electronic Signature> 05/25/2024 09:31 PM Stan Guzman M.D. Sadia Chaudhry MD [facility] Final Result * (ABNORMAL) HEMATOCRIT (04/10/2024 9:07 AM TAPROOM ATTENDANT) HCT 41.6(L) 43.0 - 54.0 % 04/10/2024 9:49 AM TAPROOM ATTENDANT [facility] 04/10/2024 9:07 AM TAPROOM ATTENDANT Comfort Elliott ASSET PROTECTION GREETER LABORATORY Final Result Performing Organization Address City/[facility]/ZIP Co de Phone Number [facility] [address] [place] [address], * UREA NITROGEN, BLOOD (BUN) QUANT (04/10/2024 9:07 AM TAPROOM ATTENDANT) Pathologist [facility] BUN 10 7 - 18 MG/DL 04/10/2024 10:05 AM TAPROOM ATTENDANT [facility] 04/10/2024 9:07 AM TAPROOM ATTENDANT Comfort Elliott ASSET PROTECTION GREETER LABORATORY Final Result Performing Organization Address City/[facility]/ZIP Co de Phone Number [facility] [address] [place] [address], * (ABNORMAL) CREATININE (04/10/2024 9:07 AM TAPROOM ATTENDANT) Pathologist [facility] CREATININE S/P/B 0.88 0.7 - 1.3 MG/DL 04/10/2024 10:05 AM TAPROOM ATTENDANT [facility] GFR ESTIMATE 90(L) >90 ML/MIN/1.7 3 M2 04/10/2024 10:05 AM TAPROOM ATTENDANT [facility] Comment: NOTE: eGFR is not calculated for patients <18 years of age or gender unknown. This is an estimated GFR calculation using the new CKD EPI creatinine equation without race and so does not require a correction factor for race. This estimated GFR should not be used for calculating drug doses. 04/10/2024 9:07 AM TAPROOM ATTENDANT Comfort Elliott [facility]ORATORY Final Result [facility] [address] [place] [address], [place] [phone] * XA [facility] POSS (04/07/2024 8:49 AM TAPROOM ATTENDANT) Anatomical Region Laterality Modality Cardiac Personal Investment Adviser 04/07/2024 8:00 AM TAPROOM ATTENDANT Comfort Elliott [facility] CLEARANCE REPRESENTATIVE Final Result * LIPID PANEL (03/25/2024 7:59 AM CDT) CHOLESTEROL 118 <200 MG/DL 03/25/2024 8:37 AM CDT [facility] TRIGLYCERIDES 102 <150 MG/DL 03/25/2024 8:37 AM CDT [facility] HDL 56 >40.0 MG/DL 03/25/2024 8:37 AM CDT [facility] LDL (CALCULATED) 42 <100 MG/DL 03/25/20 8:37 AM CDT [facility] NON HDL CHOLESTEROL 62 <130 MG/DL 03/25 8:37 AM CDT [facility] CHOL/HDL RATIO 2.1 0.0 - 4.5 03/25/2024 8:37 AM CDT [facility] VLDL CALCULATION 20 5 - 55 MG/DL 03/25/2024 8:37 AM CDT [facility] LIPID INTERPRETATION 03/25/2024 8:37 AM CDT [facility] Comment: NIH CONCENSUS REPORT RECOMMENDATIONS: ADULT CHILD LOW RISK: CHOLESTEROL <200 <170 TRIGLYCERIDE <150 --- HDL >=60 --- LDL <100 <110 BORDERLINE: CHOLESTEROL 200-239 170-199 TRIGLYCERIDE 150-199 --- HDL 40-59 --- LDL 100-159 110-129 HIGH RISK: CHOLESTEROL >=240 >=200 TRIGLYCERIDE >=200 --- HDL <40 --- LDL >=160 >=130 03/25/2024 7:59 AM CDT Cofmort Elliott ASSET PROTECTION GREETER LABORATORY Final Result [facility] [address] [place] [address], from Last 3 Months or Most Recently Relevant to Health Maintenance Insurance [employer] Advance Directives * Full Code (Latest Code Status on File) Date Activated Date Inactivated Comments 06/04/2024 2:54 PM 06/08/2024 1:21 PM * Full Code Date Activated Date Inactivated Comments 04/07/2024 8:57 AM 04/07/2024 3:06 PM Care Teams Featherer Relationship Specialty Start Date End Date Isela Garcia MD [address] [place] [address] PCP - General FAMILY PRACTICE 02/06/24 Gonzalez Zhu MD [address] [address] Consulting Physician CARDIOVASCULAR DISEASE 05/23/24
[2024-07-07 12:59] LABS: Basophils Absolute Auto 0.1 K/mm3 (0.0-0.1); Basophils Percent Auto 0.6 % (0.2-1.2); Eosinophils Absolute Auto 0.2 K/mm3 (0-0.3); Eosinophils Percent Auto 2.5 % (0-4.4); Hematocrit 39.1 % (42.0-52.0); Hemoglobin 12.5 g/dL (14.0-18.0); Immature Granulocyte Absolute 0.03 K/mm3 (0.00-0.031); Immature Granulocyte Percent A 0.4 % (0-0.5); Lymphocytes Absolute Auto 1.49 K/mm3 (0.9-3.2); Lymphocytes Percent Auto 17.4 % (18.3-44.2); Mean Corpuscular Hemoglobin 29.1 pg (26-34); Mean Corpuscular Volume 90.9 fl (80-100); Mean Platelet Volume 10.6 fl (7.4-10.4); Monocytes Absolute Auto 0.7 K/mm3 (0.1-0.6); Monocytes Percent Auto 8.2 % (2.6-8.5); Neutrophils Absolute Auto 6.1 K/mm3 (1.3-6.7); Neutrophils Percent Auto 70.9 % (45.5-73.1); Platelet Count Result 245 k/mm3 (150-375); Red Cell Distribution Width 13.2 % (11.5-14.5); White Blood Count 8.6 K/mm3 (4.5-10.0)
[2024-07-07 14:52] LABS: Alanine Aminotransferase 21 U/L (6-50); Albumin Level 4.2 g/dL (3.5-5.1); Alkaline Phosphatase 93 U/L (38-126); Anion Gap 9 mmol/L (4-12); Aspartate Amino Transferase 46 U/L (17-59); Bilirubin,Total 0.9 mg/dL (0.2-1.3); Blood Urea Nitrogen 28 mg/dL (9-20); Calcium 9.5 mg/dL (8.4-10.2); Carbon Dioxide 28 mmol/L (22-30); Chloride 97 mmol/L (98-107); Cholesterol 91 mg/dL (0-200); Estimated Glomerular Filt Rate > 60; Glucose 146 mg/dL (65-110); HDL Direct 44 mg/dL; Potassium 4.6 mmol/L (3.4-5.0); Sodium 134 mmol/L (137-145); Triglycerides 94 mg/dL (<150)
[2024-07-07 15:14] LABS: LDL Cholesterol Direct < 30 mg/dL
[2024-07-07 15:23] LABS: Prostate Specific Antigen 0.6 ng/mL (< OR = 4.0)
[2024-07-07 15:59] LABS: Vitamin D 25 Hydroxy 33.9 ng/mL
[2024-07-07 16:53] LABS: Hemoglobin A1C 9.1 % (<5.7)
[2024-07-07 17:08] LABS: Creatinine Urine 48.9 mg/dL
[2024-07-07 17:32] LABS: MALB Creatinine Ratio < 12.3 mg/g (0-30); Microalbumin Urine Random < 6.0 mg/L (0-16.7)
== END 2024-07-07 09:37 | disposition home or self-care (01) ==
PROVIDERS: PCP Family Medicine; Visit Provider Family Medicine
DX: E78.5 Hyperlipidemia, unspecified (principal); E11.9 Type 2 diabetes mellitus without complications; I10 Essential (primary) hypertension; E55.9 Vitamin D deficiency, unspecified; E53.8 Deficiency of other specified B group vitamins; Z12.5 Encounter for screening for malignant neoplasm of prostate; Z00.00 Encounter for general adult medical examination without abnormal findings
CPT/HCPCS: 36415; 80053; 80061; 82043; 82306; 82607; 83036; 84153; 84443; 85025; G0103

== ENCOUNTER 2025-01-02 11:57 | Emergency (ER) | payer MEDICARE, SELFPAY ==
--- NOTE | 2025-01-02 11:58 | ED.MALEGU ---
HPI - Male Genitourinary General Chief complaint: Urogenital-Male Stated complaint: UTI Time Seen by Provider: 01/02/25 11:58 Source: patient Mode of arrival: ambulatory Limitations: no limitations Related Data Home Medications ?Medication ?Instructions ?Recorded ?Confirmed ?Last Taken ?Type multivitamin-ferrous 1 tablet PO DAILY 12/25/19 07/07/24 Unknown History fumarate-folic acid 18 mg-400 mcg tablet (Centrum Complete) aspirin 81 mg tablet,delayed 81 mg PO DAILY 06/11/24 07/07/24 Unknown History release (Toni Low Dose Aspirin) metoprolol succinate 100 mg 100 mg PO DAILY 06/11/24 07/07/24 Unknown History tablet,extended release 24 hr nitroglycerin 0.4 mg sublingual 0.4 mg sublingual PRN 06/11/24 07/07/24 Unknown History tablet rosuvastatin 20 mg tablet 20 mg PO QHS 06/11/24 07/07/24 Unknown History acetaminophen 500 mg tablet 500 mg PO Q6H PRN 07/07/24 07/07/24 Unknown History (Tylenol Extra Strength) furosemide 40 mg tablet 40 mg PO BID 07/07/24 07/07/24 Unknown History spironolactone 25 mg tablet 25 mg PO DAILY 07/07/24 07/07/24 Unknown History Allergies Allergy/AdvReac Type Severity Reaction Status Date / Time No Known Allergies Allergy Verified 01/02/25 12:03 Review of Systems Review of Systems: All systems reviewed & are unremarkable except as noted in HPI and below Constitutional: Constitutional: Denies chills, Denies fever(s), Denies headache(s), Denies malaise and Denies weakness Eyes: Eyes: Denies change in vision, Denies eye discharge and Denies irritation ENT: Denies otalgia, Denies headache(s), Denies nasal congestion, Denies nasal discharge, Denies sinus pain and Denies sore throat Cardiovascular: Cardiovascular: Denies chest pain, Denies edema, Denies palpitations and Denies dyspnea Respiratory: Respiratory: Denies cough and Denies dyspnea Gastrointestinal: Gastrointestinal: Denies abdominal pain, Denies diarrhea, Denies nausea and Denies vomiting Genitourinary: Genitourinary: Reports hematuria, Reports dysuria, Denies flank pain and Reports urinary urgency Musculoskeletal: Musculoskeletal: Denies back pain and Denies numbness Integumentary/Breasts: Skin/Breast: Denies pruritus and Denies rash Neurologic: Denies headache(s), Denies numbness and Denies weakness Psychiatric: Psychiatric: Reports no additional psychiatric complaints Endocrine: Endocrine: Denies palpitations PMFSH Past Medical History Medical History Coronary artery disease Family history of malignant neoplasm of colon in first degree relative diagnosed when younger than 60 years of age Erectile dysfunction Allergic rhinitis GERD without esophagitis 11/07/2018 BPH w urinary obs/LUTS Dyslipidemia 05/01/2018 Hypogonadism in male 01/25/2017 Essential (primary) hypertension Type 2 diabetes mellitus without complication, without long-term current use of insulin Surgical History Surgical History S/P CABG x 6 (~05/2024) [place] teeth extracted (~1980) Hx of tonsillectomy (~1953) age 3 Family History Family History Father Heart disease Other Carcinoma of colon Social History Social History Smoking status: Never smoker Second hand tobacco smoke exposure: No Alcohol intake: current Alcohol use details: consumes 3 drinks of beer or liquor weekly. Substance use: never Substance use type: does not use Lack of Transportation: No Lack of Food: Never True Current Housing: I Have Housing Concerned About Future Housing: No Difficulty Paying Gas/Electric Bills: No Difficulty Paying for Meds: No Currently Unemployed: No Education: Bachelor's Degree Difficulty w/ Childcare or Family Care: No Living arrangements: with family Additional living arrangements comments: Occupation/Education: retired Gender identity (if verbalized by the patient): Male Sexual Orientation (if Verbalized by the Patient): Straight or Heterosexual Spiritual care concerns: No Comments At time of signature, agree with nursing past medical, surgical, social and family history. There is no relevant family history pertinent to the presenting complaint. Exam Const: General: cooperative, healthy appearing, comfortable, no acute distress and well nourished Nutritional Appearance: well nourished Orientation/consciousness: patient oriented x3 HENMT: Head: normocephalic and atraumatic Ears: external ears normal Face/Nose/Sinus: Normal external nose present, Normal nares present and normal facial exam Face and sinus: normal facial exam Eyes: General: appearance normal, both eyes and all related structures Pupils: Equal, round and reactive pupils present EOM: EOMs intact bilaterally Neck: Neck: normal visual inspection, full ROM and supple Chest: Chest palpation & inspection: normal inspection of the chest Resp: Effort & Inspection: normal respiratory effort and able to speak in complete sentences Cardio: Rate: regular rate Rhythm: regular rhythm GI: Inspection: normal to inspection GI Palp: No abdominal tenderness and Yes Soft to palpation : General: Yes no CVA tenderness Back/Spine/Pelvis: Back: no CVA tenderness Skin: General skin exam: normal color and no rashes or lesions noted Neuro: General: patient oriented x3 and moves all extremities Cranial nerves: Yes Equal, round and reactive pupils present Extrem: General: normal to inspection and full ROM Psych: Appearance: grossly normal and well kempt Course Course Emergency Course: Patient is aware of diagnosis, understands and agrees to treatment plan. Anticipatory guidance given. Patient agrees to follow-up as directed and is aware of reasons to seek care at the emergency department. Portions of this record may have been created with voice recognition software Level of Care: Express Care Visit Vital Signs Vital signs: Vital Signs Temperature 36.1 C L 01/02/25 12:11 Pulse Rate 67 01/02/25 12:11 Respiratory Rate 18 01/02/25 12:11 Blood Pressure 136/63 01/02/25 12:11 Pulse Oximetry 97 01/02/25 12:11 Oxygen Delivery Room Air 01/02/25 12:11 Temperature 36.1 C L 01/02/25 12:11 Pulse Rate 67 01/02/25 12:11 Respiratory Rate 18 01/02/25 12:11 Blood Pressure 136/63 01/02/25 12:11 Pulse Oximetry 97 01/02/25 12:11 Oxygen Delivery Room Air 01/02/25 12:11 Reviewed MDM - Male Genitourinary MDM Narrative Medical decision making narrative: Exam findings and UA show no blood. May have passed blood clot or kidney stone. Reports he had some pain at the start of symptoms that has since resolved. States he saw a small bloody mass in the morning. Patient is going to [place] for 2 weeks. Patient is going to picker / packer prescription today and will not start taking medication until culture results.; patient is non-toxic appearing and is in no distress. No CMT, adnexal tenderness, or evidence of pelvic etiology. Patient is appropriate for outpatient treatment and follow-up. Differential Diagnosis Differential diagnosis: Likely urinary tract infection, urethritis, epididymitis, prostatitis, acute retention of urine and other (Kidney stone) Medical Records Attestation: I reviewed the patient's medical records. Lab Data Attestation: I reviewed the patient's lab results. Labs: Lab Results 01/02/25 Range/Units 12:17 POC Urine Color Yellow POC Urine Clarity Clear POC Urine pH 7.0 POC Ur Specif [place] 1.015 POC Urine Protein Negative (Negative) POC Ur Glucose (UA) 2+ (Negative) POC Urine Ketones Negative (Negative) POC Urine Blood 1+ (Negative) POC Urine Nitrite Negative (Negative) POC Urine Bilirubin Negative (Negative) POC Urine Urobilinogen 0.2 POC U Leukocyte Esteras Negative (Negative) Discharge Plan Discharge Clinical Impression: Burning with urination Hematuria Qualifiers: Hematuria type: unspecified type Qualified Code(s): R31.9 - Hematuria, unspecified Patient Disposition: Home Condition: Stable Instructions: Hematuria (ED), Dysuria (ED) Additional Instructions: We will send a urine culture to the lab. If culture comes back with bacteria we will call you in a prescription. Continue with increased water intake. Take Tylenol or ibuprofen as needed for pain or fever. Follow-up with primary care provider for urine recheck or see ER visit if condition worsens with high fever, nausea, vomiting, severe back pain Patient Language: Tunisian Prescriptions: New cephalexin 500 mg capsule 500 mg PO QID 7 Days Qty: 28 0RF No Action acetaminophen [Tylenol Extra Strength] 500 mg tablet 500 mg PO Q6H PRN spironolactone 25 mg tablet 25 mg PO DAILY furosemide 40 mg tablet 40 mg PO BID metoprolol succinate 100 mg tablet extended release 24 hr 100 mg PO DAILY nitroglycerin 0.4 mg tablet, sublingual 0.4 mg sublingual PRN rosuvastatin 20 mg tablet 20 mg PO QHS aspirin [Toni Low Dose Aspirin] 81 mg tablet,delayed release (DR/EC) 81 mg PO DAILY Centrum Complete 18-400 mg-mcg tablet 1 tablet PO DAILY (DME) [employer] Bi[employer]Touch Verio test strips Strip See Rx Instructions .Route Qty: 100 5RF Rx Instructions: check blood sugars t.i.d. a.c.As directed tamsulosin 0.4 mg capsule 0.4 mg PO DAILY Qty: 90 1RF lisinopril 10 mg tablet 10 mg PO DAILY Qty: 90 1RF Jardiance 25 mg tablet 25 mg PO QAM Qty: 90 1RF budesonide 0.25 mg/2 mL suspension for nebulization See Rx Instructions .ROUTE .COMPLEX Qty: 180 3RF Dose Instruction: USE 1 AMPULE IN IRRIGATION BOTTLE AND IRRIGATE TWICE DAILY DIRECTED Rx Instructions: USE 1 AMPULE IN IRRIGATION BOTTLE AND IRRIGATE TWICE DAILY DIRECTED (DME) lancets 33 gauge misc See Rx Instructions .ROUTE .MEDSUPPLY Qty: 100 5RF Rx Instructions: check blood sugars t.i.d. a.c. As directed metformin 500 mg tablet extended release 24 hr 2,000 mg PO DAILY Qty: 360 1RF Follow-up/Referrals: Chely Garcia MD [Primary Care Provider] - 3 Days Time of Disposition: 12:40
--- OUTSIDE RECORDS SUMMARY | 2025-01-02 11:59 | XMS_ITS | Encounter Summary ---
Author Organization [facility] Address [facility] [place] [address] Care Team Providers Care Automobile Accessories Installer Name Role Phone Isela Garcia MD Primary Care Provider Gonzalez Zhu MD Unavailable [phone] Encounter Details Date Type Department Care Team (Late st Contact Info) Description 04/15/2024 [employer] Message Enc [place] [facility] THREE [facility] [address] [place] [address] Gonzalez Zhu MD Three [facility] [address] [place] [address] [facility] Social History Tobacco Use Types Packs/Day Years Used Date Smoking Tobacco: Never Smokeless Tobacco: Never Alcohol Use Standard Drinks/Week Comments Yes 3.3 (1 standard drink = 0.6 oz p ure alcohol) Sex and Gender Information Value Date Recorded Sex Assigned at Male 06/18/2024 10:28 AM INTENSIVE CARE ANAESTHETIST Legal Sex Male 9:52 AM CDT Gender Identity Not on file Sexual Orientation Not on file documented as of this encounter Plan of Treatment Upcoming Encounters Date Type Department Care Team (Late st Contact Info) Description 06/22/2025 1:30 PM INTENSIVE CARE ANAESTHETIST [facility] [address] [place] [phone] Comfort Elliott FNP 3 [facility] [address] [place] [address] documented as of this encounter Visit Diagnoses Not on filedocumented in this encounter Care Teams Automobile Accessories Installer Relationship Specialty Start Date End Date Isela Garcia MD [address] [place] [address] PCP - General FAMILY PRACTICE 02/06/24 Gonzalez Zhu MD Three [facility] [place], [place] [address] Consulting Physician CARDIOVASCULAR DISEASE 05/23/24 documented as of this encounter
--- OUTSIDE RECORDS SUMMARY | 2025-01-02 11:59 | XMS_ITS | Encounter Summary ---
Author Organization [facility] Address [facility] [place] [address] Care Team Providers Care Frame Carver Spindle Name Role Phone Isela Garcia MD Primary Care Provider Gonzalez Zhu MD Unavailable [phone] Encounter Details Date Type Department Care Team (Late st Contact Info) Description 11/04/2024 Results [facility] [address] [place] [phone] Comfort Elliott, BUYER [address] [address] CBC, AUTO, NO DIFF, COMPREHENSIVE METABOLIC PANEL, LIPID PANEL, CK (CPK) Social History Tobacco Use Types Packs/Day Years Used Date Smoking Tobacco: Never Smokeless Tobacco: Never Alcohol Use Standard Drinks/Week Comments Not Currently 3.3 (1 standard drink = 0.6 oz p ure alcohol) [facility] Utilities Answer Date Recorded In the past 12 months has [facility] [employer], gas, oil, or water [employer] threatened to shut off services in your [...] any time in the past 12 m [facility], were you homeless or living in a long-term (including now)? No 06/08/2024 Sex and Gender Information Value Date Recorded Sex Assigned at Male 06/18/2024 10:28 AM SKATE HOP Legal Sex Male 9:52 AM CDT Gender [...] Assessment Author Status No 06/08/2024 7:09 AM SKATE HOP Ratermann, Mackenz ie, RN Active * Do you have serious difficulty walking or climbing stairs? Answer Date of Assessment Author Status No 06/08/2024 7:09 AM SKATE HOP Bill Geronimo, RN Active * Do you have difficulty dressing or bathing? Answer Date of Assessment Author Status No 06/08/2024 7:09 AM SKATE HOP Bill Geronimo ie, RN Active * Because of a physical, mental, or emotional condition, do you have difficulty doing errands alone such as visiting a doctor's office or shopping? Answer Date of Assessment Author Status No 06/08/2024 7:09 AM SKATE HOP Bill Geronimo ie, RN Active documented as of this encounter Mental Status * Because of a physical, mental, or emotional condition, do you have serious difficulty concentrating, remembering, or making decisions? Answer Entry Date Author Status No 06/08/2024 7:09 AM Bill Israel, RN Active documented in this encounter Plan of Treatment Upcoming Encounters Date Type Department Care Team (Late st Contact Info) Description 06/22/2025 1:30 PM SKATE HOP [facility] [address] [place] [address] Comfort Elliott FNP 3 [facility] [address] [place], [place] [id number] documented as of this encounter Goals Goal Patient Goal Type Associated Problems Recent Progress Patient-Stated? Author Health - patient able to perform ADLs independently Lifestyle No Tammy Rainey RN documented as of this encounter Visit Diagnoses Not on filedocumented in this encounter Care Teams Frame Carver Spindle Relationship Specialty Start Date End Date Isela Garcia MD [address] [place] [address] PCP - General FAMILY PRACTICE 02/06/24 Gonzalez Zhu MD Three [facility]. [address] [place], [place] [id number] Consulting Physician CARDIOVASCULAR DISEASE 05/23/24 documented as of this encounter
--- OUTSIDE RECORDS SUMMARY | 2025-01-02 11:59 | XMS_ITS | Encounter Summary ---
Author Organization [facility] Address [facility] [place] [address] Care Team Providers Care Check Airman Name Role Phone Isela Garcia MD Primary Care Provider Gonzalez Zhu MD Unavailable [phone] Encounter Details Date Type Department Care Team (Late st Contact Info) Description 11/03/2024 [employer] Message [facility] [address] [place] [address] Gonzalez Zhu MD [address] [address] RDW Social History Tobacco Use Types Packs/Day Years Used Date Smoking Tobacco: Never Smokeless Tobacco: Never Alcohol Use Standard Drinks/Week Comments Not Currently 3.3 (1 standard drink = 0.6 oz p ure alcohol) [facility] Utilities Answer Date Recorded In the past 12 months has [employer], gas, oil, or water [employer] threatened to shut off services in your [...] any time in the past 12 [facility], were you homeless or living in a long term (including now)? No 06/08/2024 Sex and Gender Information Value Date Recorded Sex Assigned at Male 06/18/2024 10:28 AM STACKER ATTENDANT Legal Sex Male 9:52 AM CDT [...] 7:09 AM Bill Israel, RN Active * Do you have serious difficulty walking or climbing stairs? Answer Date of Assessment Author Status No 06/08/2024 7:09 AM STACKER ATTENDANT Bill Geronimo ie, RN Active * Do you have difficulty dressing or bathing? Answer Date of Assessment Author Status No 06/08/2024 7:09 AM Bill Israel ie, RN Active * Because of a physical, mental, or emotional condition, do you have difficulty doing errands alone such as visiting a doctor's office or shopping? Answer Date of Assessment Author Status No 06/08/2024 7:09 AM Bill Israel ie, RN Active documented as of this encounter Mental Status * Because of a physical, mental, or emotional condition, do you have serious difficulty concentrating, remembering, or making decisions? Answer Entry Date Author Status No 06/08/2024 7:09 AM Bill Israel, RN Active documented in this encounter Progress Notes * JLUIS Sorto - 11/03/2024 1:57 PM CDT I am not too concerned regarding the RDW level since everything else on the complete blood count looks okay. Will continue to keep an eye on things. documented in this encounter Plan of Treatment Upcoming Encounters Date Type Department Care Team (Late st Contact Info) Description 06/22/2025 1:30 PM STACKER ATTENDANT Office Visit [facility] [address] [place] [phone] Comfort Elliott FNP [address] [place], [place] [address] [place] [address] documented as of this encounter Goals Goal Patient Goal Type Associated Problems Recent Progress Patient-Stated? Author Health - patient able to perform ADLs independently Lifestyle Tammy Castro RN documented as of this encounter Visit Diagnoses Not on filedocumented in this encounter Care Teams Check Airman Relationship Specialty Start Date End Date Isela Garcia MD [address] [place] [address] PCP - General FAMILY PRACTICE 02/06/24 Gonzalez Zhu MD [facility]. [address] [address] Consulting Physician CARDIOVASCULAR DISEASE 05/23/24 documented as of this encounter
--- OUTSIDE RECORDS SUMMARY | 2025-01-02 11:59 | XMS_ITS | Continuity of Care Document ---
Author Organization [facility] Address [address] [place] [address] Phone Care Team Providers Care Sugar Chipper Machine Operator Name Role Phone Kim OD, Vladimir Unavailable Unavailable Allergies, Adverse Reactions, Alerts Substance Reaction Status Criticality No Known Allergies Active No Inform ation Medications Medication Instructions Dosage Effective Dates (start - stop) Status Comments brimonidine 0.2 % eye drops instill 1 drop by ophthalmic route 2 x a day in the left eye for 3 days then stop - Active prednisolone acetate 1 % eye drops,suspension Instill 1 drop QID to the operative eye starting 2 days before surgery, continue for 7 days after, then BID until advised otherwise by physician Disp 10 ml - Active ofloxacin 0.3 % eye drops instill 1 drop to operative eye QID x 9 days starting 2 days before surgery Disp 5ml - Active ketorolac 0.5 % eye drops instill 1 drop in operative eye QID for 9 days starting 2 days prior to surgery Disp 5ml - Active Procedures Procedure Date REFRACTION POSTOP FOLLOW-UP VISIT REFRACTION NO CHARGE POSTOP FOLLOW-UP VISIT POSTOP FOLLOW-UP VISIT POSTOP FOLLOW-UP VISIT CATARACT SURG W/IOL IOL MASTER, PROF COMP ONLY Postoperative Exam POSTOP FOLLOW-UP VISIT CATARACT SURG W/IOL Post Operative Kit / Medical Supply By P rescription EYE EXAM, NEW PATIENT REFRACTION NO RX IOL MASTER AXIAL LENGTH Advance Directives Directive Yes / No Effective Date File Name No Information Encounters Encounter Description Practice Location Reason(s) For Visit Diagnoses Date Provider Providers Copied on Encounter [facility], [address] [place] [address], [id number] , tel:[phone] [facility] Post-op cataract surgery (chief complaint) Regular astigmatism, bilateralOther specified postprocedural statesMyopia, left eyePresbyopiaPres ence of intraocular lensType 2 diabetes mellitus without complications Oct-2 4 Kim Gilbert. [address] [place] [address], [id number], [place]. tel:[phone] Referring Provider: Vladimir Villarreal, [address] [place] [address], [id number]. tel:[phone] [facility], [address] [place] [address], [id number] , [place] tel:[phone] [facility] Post-op cataract surgery (chief complaint) Type 2 diabetes mellitus without complicationsLong term (current) use of oral hypoglycemic drugsPresence of intraocular lensPresbyopiaOth er specified postprocedural statesSecondary corneal edema, bilateral Oct-1 0- 4 Kim Gilbert. [address] [place] [address], [id number], [place]. tel:[phone] Referring Provider: Vladimir Villarreal, [address] [place] [address], [id number]. tel:[phone] [facility], [address] [place] [address], [id number] , [place] tel:[phone] [facility] Post-op cataract surgery (chief complaint) Cataract extraction status, right eye Sep- 4 Kim Gilbert. [address] [place] [address], [id number], [place]. tel:[phone] Referring Provider: Vladimir Villarreal, [address] [place] [address], [id number]. tel:[phone] [facility], [address] [place] [address], [id number] , [place] tel:[phone] [facility] Post-op cataract surgery (chief complaint) Cataract extraction status, right eye Sep-2 4 Kim Gilbert. [address] [place] [address], [id number], [place]. tel:[phone] Referring Provider: Vladimir Villarreal, [address] [place] [address], [id number]. tel:[phone] [facility], [address] [place] [address], [id number] , [place] tel:[phone] [facility] Age-related nuclear cataract, right eye Sep-2 4 Brady Conrad. [address] [place] [address], [id number], [place]. tel:[phone] Referring Provider: Houston Oliveira, [address] [place] [address], [id number]. tel:[phone] [facility], [address] [place] [address], [id number] , [place] tel:[phone] [facility] Age-related nuclear cataract, right eye Sep-2 4 Brady Conrad. [address] [place] [address], [id number], [place]. tel:[phone] [facility], [address] [place] [address], [id number] , [place] tel:[phone] [facility] Post-op cataract surgery (chief complaint) Cataract extraction status, left eye Sep-1 0 4 Anila López. [address] [place] [address], [id number], [place]. tel:[phone] Referring Provider: Maribel English, [address] [place] [address], [id number]. tel:[phone] [facility], [address] [place] [address], [id number] , [place] tel:[phone] [facility] No Information 4 Brady Conrad. [address] [place] [address], [id number], [place]. tel:[phone] Referring Provider: Houston Oliveira, [address] [place] [address], [id number]. [phone] [facility], [address] [place] [address], [id number] , [place] tel:[phone] [facility] No Information 4 Brady Conrad. [address] [place] [address], [id number], [place]. [phone] Referring Provider: Gilma Eller, [address] [place] [address], [id number]. tel:[phone] [facility], [address] [place] [address], [id number] , [place] tel:[phone] [facility] No Information 4 Brady Conrad. [address] [place] [address], [id number], [place]. [phone] [facility], [address] [place] [address], [id number] , [place] tel:[phone] [facility] cataract evaluation (chief complaint) Type 2 diabetes mellitus without complicationsLong term (current) use of oral hypoglycemic drugs 4 Brady Conrad. [address] [place] [address], [id number], [place]. tel:[phone] Referring Provider: Houston Oliveira, [address] [place] [address], [id number]. tel:[phone] Family History Family Member Type Diagnosis Age At Onset Problem No family history of Hyperte nsion Problem No family history of Glaucom a Mother Problem Diabetes mellitus Problem No family history of Catarac ts Problem No family history of Macular degeneration Payers Payer name Insurance type Covered libertarian ID Dm perry(s) [place] [employer] [place] [id number] Social History Type Description Quantity Date Captured Comments Alcohol Use Details Unknown Caffeine Use Details Unknown Tobacco Use Status Cigarette smoker Smoking Status Current every day smoker Smoking Tobacco Use Details Cigarette: No Details Available Cigarette: No Details Available Sex Male Chief Complaint And Reason For Visit From encounter dated '03/20/2024 10:45'. Post-op cataract surgery (chief complaint). Description: The 73 year old patient presents for Post-op cataract surgery OU and f/u corneal edema OU. Pt reports vision is good OU. Patient denies: pain or discomfort. Pt using Prednisolone BID OU. Reason For Referral Reason For Referral No Information History Of Present Illness Encounter Date Complaint History Of Prese nt Illness Post-op cataract surgery The 73 year old patient presents for Post- op cataract surgery OU and f/u corneal edema OU. Pt reports vision is good OU. Patient denies: pain or discomfort. Pt using Prednisolone BID OU. Post-op cataract surgery The 73 year old patient presents for Post- op cataract surgery OU. Pt reports vision is good OU since surgery. Pt reports he has trouble opening his eyes in the morning and feels like his eyelids are too heavy. Pt also reports lights are too bright now. Pt reports OD feels like there is something in it. Patient denies: pain. Pt not using any eye meds or AT. Post-op cataract surgery The 73 year old patient presents for Post- op cataract surgery OD due to elevated IOP at PO1. Pt reports vision is good OU since surgery. Patient denies: pain or discomfort. Post-op cataract surgery The 73 year old patient presents for evaluation of Post-op cataract surgery OD. Pt states vision in OD is improving but still dilated. Pt states OS is okay. Pt significant other states yesterday he was sick after surgery and had headaches. She gave him a couple aspirins. She states he said he is feeling weak. Pt got up during exam to use bathroom due to sickness. Post-op cataract surgery The 73 year old patient presents for Post- op cataract surgery OS. Pt state he isn't sure if vision is clearer but does notice colors are brighter. Pt states N [facility] D [facility] OD is ok. Patient denies: pain or discomfort. cataract evaluation The 73 year old patient presents [facility] the [facility] in the left eye > the right eye. Pt notes OS is very foggy and is constantly at D and N c readers. It started about 1 year(s) ago. Pt notes OD is very good and makes up for OS. Pt doesn't go out at night and so he doesn't see any glare. Patient denies: glare and pain or discomfort. Pt not using any AT or eye meds. Pt is type 2 diabetic and tx with oral meds. Pt doesn't check BS regularly at home, but remembers his A1C from 6mo ago was a little high. Please [facility] to the [facility]. Functional Status Date Functional Assessmen t No Information Instructions Date Instruction Additional Infor mation Impression/Plan Impression/Plan Impression/Plan Related to Catar act extraction status, right eye Impression/Plan Related to Catar act extraction status, right eye Impression/Plan Related to Catar act extraction status, left eye Impression/Plan Assessments Type Assessment Date assessment Regular astigmatism, bilateral O assessment Other specified postprocedural s tates assessment Myopia, left eye assessment Presbyopia assessment Presence of intraocular lens Feb assessment Type 2 diabetes mellitus without complications Patient Care Teams Name Effective Dates (start - stop) Status Members No Information
--- OUTSIDE RECORDS SUMMARY | 2025-01-02 11:59 | XMS_ITS | Continuity of Care Document ---
Author Organization [facility] Address [address] [place] [address] Phone Care Team Providers Care Count Team Clerk Name Role Phone Surgery - [facility], [facility] Unavailable Unavailable Advance Directives Directive Yes / No Effective Date File Name No Information Encounters Encounter Description Practice Location Reason(s) For Visit Diagnoses Date Provider Providers Copied on Encounter [facility], [address] [place], [place], [id number], [place] tel:[phone] [facility] No Information Surgery - [facility]. [address] [place], [id number], [place]. tel:[phone] Referring Provider: Houston Oliveira, [address] [place], [address]. tel:[phone] Family History Family Member Type Diagnosis Age At Onset No Information Payers Payer name Insurance type Covered green party ID Authoriza tion(s) [facility] [employer] [place] [id number] Social History Type Description Quantity Date Captured Comments Sex Male Smoking Status No Information Chief Complaint And Reason For Visit No Information Reason For Referral Reason For Referral No Information History Of Present Illness Encounter Date Complaint History Of Prese nt Illness No Information Functional Status Date Functional Assessmen t No Information Instructions Date Instruction Additional Infor mation No Information Assessments Type Assessment Date No Information Patient Care Teams Name Effective Dates (start - stop) Status Members No Information
--- OUTSIDE RECORDS SUMMARY | 2025-01-02 11:59 | XMS_ITS | Clinical Summary ---
Author Organization [facility] Address [address] [place] [address] Care Team Providers Care Hydrographical Technical Officer Name Role Phone Isela Garcia MD Primary Care Provider Gonzalez Zhu MD Unavailable Allergies No known active allergies Medications tamsulosin [...] Take 1 tablet by mouth daily. Active nitroglycerin (NITROSTAT) 0.[address] 1 tablet (0.4 mg total) under the tongue every 5 (five) minutes as needed for Chest Pain. Maximum of 3 doses, if a third dose is needed call 911. 25 tablet 3 04/16/20 24 025 Active docusate sodium (COLACE) 100 MG capsule Take 1 capsule (100 mg total) by mouth daily. Active Naproxen Sodium (ALEVE OR) Take 1 tablet by mouth every 8 (eight) hours as needed (pain). Active metFORMIN ER (GLUCOPHAGE-XR) 500 MG 24 [...] tablet (40 mg total) by mouth daily. 07/15/19 25 Active metoprolol succinate ER (TOPROL-XL) 50 MG 24 hr tablet Take 1 tablet (50 mg total) by mouth daily. 90 tablet 2 08/29/19 25 Active rosuvastatin (CRESTOR) 20 MG tablet TAKE 1 TABLET(20 MG) BY MOUTH EVERY NIGHT AT BEDTIME 90 tablet 1 09/02/19 25 Active spironolactone (ALDACTONE) 25 MG tabletIndicatio ns:Localized swelling of lower extremity,S/P CABG (coronary artery bypass graft) TAKE 1/2 TABLET(12.5 MG) BY MOUTH DAILY 45 tablet 12/02/19 25 Active traMADol (ULTRAM) 50 MG tabletIndicatio ns:Acute Pain < 7 Day Supply Take 1 tablet (50 mg total) by mouth every 6 (six) hours as needed for Pain. Indications: Acute Pain < 7 Day Supply 28 tablet 06/08/19 25 025 Discontinued(P t. elected to discontinue med) Active Problems Problem Noted Date Diagnosed Date CAD (coronary artery disease) 06/04/2024 Encounters Date Type Department Care Team Description 12/18/2024 11:30 AM CDT Office Visit [facility] [address] [place] [address] Gonzalez Zhu MD Coronary Artery Disease; Hypertension; Bradycardia 12/18/2024 Travel 11/04/2024 Results Follow-Up [facility] [address] [place] [address] Comfort Elilott, JLUIS CBC, AUTO, NO DIFF, COMPREHENSIVE METABOLIC PANEL, LIPID PANEL, CK (CPK) 11/03/2024 7:35 AM CDT - 11/03/2024 11:59 PM CDT Hospital Encounter [facility] [address] [place] [address] Comfort Elliott FNP Discharge Disposition: Home or Self Care (Routine Discharge) 11/03/2024 [facility] Cardi[facility] Outreach [facility] [address] [place] [address] Gonzalez Zhu MD RDW 11/03/2024 Travel 10/28/2024 9:21 AM CDT - 10/28/2024 11:59 PM CDT Hospital Encounter [facility] [address] [place] [address] Gonzalez Zhu MD Discharge Disposition: Home or Self Care (Routine Discharge) 10/28/2024 Travel 10/27/2024 9:27 AM CDT - 10/27/2024 11:59 PM CDT Hospital Encounter [facility] [address] [place] [address] Gonzalez Zhu MD Discharge Disposition: Home or Self Care (Routine Discharge) 10/27/2024 Travel 10/23/2024 9:23 AM CDT - 10/23/2024 11:59 PM CDT Hospital Encounter [facility] [address] [place] [address] Gonzalez Zhu MD Discharge Disposition: Home or Self Care (Routine Discharge) 10/23/2024 Travel 10/21/2024 9:24 AM CDT - 10/21/2024 11:59 PM CDT Hospital Encounter [facility] [address] [place] [address] Gonzalez Zhu MD Discharge Disposition: Home or Self Care (Routine Discharge) 10/21/2024 Travel 10/16/2024 9:26 AM CDT - 10/16/2024 11:59 PM CDT Hospital Encounter [facility] [address] [place] [address] Gonzalez Zhu MD Discharge Disposition: Home or Self Care (Routine Discharge) 10/16/2024 Travel 10/14/2024 9:23 AM CDT - 10/14/2024 11:59 PM CDT Hospital Encounter [facility] [address] [place] [address] Gonzalez Zhu MD Discharge Disposition: Home or Self Care (Routine Discharge) 10/14/2024 Travel 10/13/2024 9:21 AM CDT - 10/13/2024 11:59 PM CDT Hospital Encounter [facility] [address] [place] [address] Gonzalez Zhu MD Discharge Disposition: Home or Self Care (Routine Discharge) 10/13/2024 Travel 10/09/2024 9:21 AM CDT - 10/09/2024 11:59 PM CDT Hospital Encounter [facility] [address] [place] [address] Gonzalez Zhu MD Discharge Disposition: Home or Self Care (Routine Discharge) 10/09/2024 Travel 10/07/2024 9:21 AM CDT - 10/07/2024 11:59 PM CDT Hospital Encounter [facility] [address] [place] [address] Gonzalez Zhu MD Discharge Disposition: Home or Self Care (Routine Discharge) 10/07/2024 Travel 10/06/2024 9:23 AM CDT - 10/06/2024 11:59 PM CDT Hospital Encounter [facility] [address] [place] [address] Gonzalez Zhu MD Discharge Disposition: Home or Self Care (Routine Discharge) 10/06/2024 Travel 10/02/2024 9:23 AM CDT - 10/02/2024 11:59 PM CDT Hospital Encounter [facility] [address] [place] [address] Gonzalez Zhu MD Discharge Disposition: Home or Self Care (Routine Discharge) 10/02/2024 Travel from Last 3 Months Immunizations Immunization Administration Dates Next Due Arexvy Respiratory Syncytial [...] drink = 0.6 oz p ure alcohol) [facility] Clonelessities Answer Date Recorded In the past 12 months has e [employer], oil, or water [employer] threatened to shut off services in your [...] time in the past 12 m [place], were you homeless or living in a [place] health [place] facility (including now)? No 06/08/2024 Sex and Gender Information Value Date Recorded Sex Assigned at Male 06/18/2024 10:28 AM LOGISTICS ENGINEERING MANAGER Legal Sex Male 9:52 AM CDT Gender Identity Not on file Sexual Orientation Not on file Last Filed Vital Signs Vital Sign Reading Time Taken Comments Blood Pressure 120/60 12/18/2024 11:15 AM CDT Pulse 61 12/18/2024 11:15 AM CDT Temperature 36.6 C (97.9 F) 07/08/2024 9:01 AM LOGISTICS ENGINEERING MANAGER Respiratory Rate 18 07/08/2024 9:01 AM LOGISTICS ENGINEERING MANAGER Oxygen Saturation 96% 12/18/2024 11:15 AM CDT Inhaled Oxygen Concentration - - Weight 105.2 kg (232 lb) 12/18/2024 11:15 AM CDT Height 182.9 cm (6') 12/18/2024 11:15 AM CDT Body Mass Index 31.46 12/18/2024 11:15 AM CDT Plan of Treatment Upcoming Encounters Date Type Department Care Team (Late st Contact Info) Description 06/22/2025 1:30 PM LOGISTICS ENGINEERING MANAGER Office Visit [facility] [address] [place] [address] Comfort Elliott FNP [address] [place] [address] Health Maintenance Due Date Last Done Comments Kidney Health Evaluation 1950 Diabetes: Retinopathy Eye Exam 1966 Hepatitis C 1966 DTaP, Tdap and Td Vaccines (1 - Tdap) 1967 Pneumococcal Vaccine: 50+ Years (1 of 2 - PCV) 1967 Annual Medicare Wellness Visit 2013 COVID-19 Vaccine ( season) 2024 02/14/2023, 10/04/2022, 02/01/2022, Additional history exists Hemoglobin A1C 11/21/2024 05/23/2024 Lipid Panel 11/03/2025 11/03/2024, 03/25/2024 Zoster Vaccines Completed 09/22/2020, 06/14/2020 RSV [...] ADLs independently Lifestyle No Tammy Rainey RN Medical Devices Implanted Type Area Crust Sorter Device Identifier Shelf Expiration Date Model / Serial / Lot Wire Sternotomy Suture Kit - [id number] Implanted:Qty: 1 on 06/04/2024 by Chaim Ching RNFA at [facility] Wire N/A: Sternum [employer] 06/28/2027 [id number] / / [id number] Description:5 wires implante d Wire Sterum Suture Kit [employer]ire #7 05/29 Ccs-1 - [id number] Implanted:Qty: 1 on 06/04/2024 by Chaim Ching RNFA at [facility] Wire N/A: Sternum [employer] 12/26/2026 [id number] / / [id number] Description:2 wires implante d Procedures Procedure Name Priority Date/Time Associated Diagnosis Comments CK (CPK) Routine 11/03/2024 7:42 AM CDT Coronary artery disease involving [place] coronary artery of [place] heart without angina pectoris LIPID PANEL Routine 11/03/2024 7:42 AM CDT Coronary artery disease involving [place] coronary artery of [place] heart without angina pectoris COMPREHENSIVE METABOLIC PANEL Routine 11/03/2024 7:42 AM CDT Coronary artery disease involving [place] coronary artery of [place] heart without angina pectoris CBC, AUTO, NO DIFF Routine 11/03/2024 7: 42 AM CDT Coronary artery disease involving [place] coronary artery of [place] heart without angina pectoris HEMOGLOBIN, GLYCOSYLATED Routine 05/23/2024 8:10 AM LOGISTICS ENGINEERING MANAGER CAD (coronary artery disease), [place] coronary artery Preop testing from Last 3 Months or Most Recently Relevant to Health Maintenance Results * (ABNORMAL) COMPREHENSIVE METABOLIC PANEL (11/03/2024 7:42 AM CDT) GLUCOSE 132(H) 70 - 99 MG/DL 11/03/2024 8:23 AM CDT [facility] BUN 20(H) 7 - 18 MG/DL 11/03/2024 8:23 AM CDT [facility] CREATININE S/P/B 0.80 0.7 - 1.3 MG/DL 11/03/2024 8:23 AM CDT [facility] SODIUM S/P/B 139 136 - 145 MMOL/L 11/03/2024 8:23 AM CDT [facility] POTASSIUM S/P/B 4.0 3.5 - 5.1 MMOL/L 11/03/2024 8:23 AM CDT [facility] CHLORIDE S/P/B 103 100 - 108 MMOL/L 11/03/2024 8:23 AM CDT [facility] CO2 26.7 21 - 32 MMOL/L 11/03/2024 8:23 AM [facility] CALCIUM S/P/B 9.2 8.5 - 10.1 MG/DL 11/03/2024 8:23 AM [facility] BILIRUBIN TOTAL S/P/B 0.9 0.2 - 1.2 MG/DL 11/03/2024 8:23 AM [facility] TOTAL PROTEIN S/P/B 7.5 6.4 - 8.2 G/DL 11/03/2024 8:23 AM [facility] ALBUMIN S/P/B 4.0 3.4 - 5.0 G/DL 11/03/2024 8:23 AM [facility] AST 20 15 - 37 U/L 11/03/2024 8:23 AM [facility] ALT 18 16 - 60 U/L 11/03/2024 8:23 AM [facility] ALKALINE PHOSPHATASE S/P/B 69 50 - 136 U/L 11/03/2024 8:23 AM [facility] ANION GAP 9.3 5 - 15 MMOL/L 11/03/2024 8:23 AM [facility] BUN CREATININE RATIO 25.0 6 - 26 11/03/2024 8:23 AM [facility] A/G RATIO 1.1 1.0 - 2.0 RATIO 11/03/2024 8:23 AM [facility] GFR ESTIMATE >90 >90 ML/MIN/1.7 3 M2 11/03/2024 8:23 AM [facility] Comment: NOTE: eGFR is not calculated for patients <18 years of age. This is an estimated GFR calculation using the new CKD EPI creatinine equation without race and so does not require a correction factor for race. This estimated GFR should not be used for calculating drug doses. 11/03/2024 7:42 AM CDT Comfort Elliott PENSION AGENT LABORATORY Final Result [facility] [address] [facility] [place] [address], * LIPID PANEL (11/03/2024 7:42 AM CDT) CHOLESTEROL 109 <200.0 MG/DL 11/03/2024 8:23 AM CDT [facility] TRIGLYCERIDES 72 <150 MG/DL 11/03/2024 8:23 AM CDT [facility] HDL 51 >40.0 MG/DL 11/03/2024 8:23 AM CDT [facility] LDL (CALCULATED) 44 <100 MG/DL 11/04/19 8:23 AM CDT [facility] NON HDL CHOLESTEROL 58 <130 MG/DL 11/03 8:23 AM T [facility] CHOL/HDL RATIO 2.1 0.0 - 4.5 11/03/2024 8:23 AM CDT [facility] VLDL CALCULATION 14 5 - 55 MG/DL 11/03/2024 8:23 AM T [facility] LIPID INTERPRETATION 11/03/2024 8:23 AM T [facility] Comment: NIH CONCENSUS REPORT RECOMMENDATIONS: ADULT CHILD LOW RISK: CHOLESTEROL <200 <170 TRIGLYCERIDE <150 --- HDL >=60 --- LDL <100 <110 BORDERLINE: CHOLESTEROL 200-239 170-199 TRIGLYCERIDE 150-199 --- HDL 40-59 --- LDL 100-159 110-129 HIGH RISK: CHOLESTEROL >=240 >=200 TRIGLYCERIDE >=200 --- HDL <40 --- LDL >=160 >=130 11/03/2024 7:42 AM CDT Comfort RAIP LABORATORY Final Result [facility] [address] [place] [address], [place] [phone] * (ABNORMAL) CBC, AUTO, NO DIFF (11/03/2024 7:42 AM CDT) WBC 6.90 4.4 - 11.0 x10'3/uL 11/03/2024 8:01 AM CDT [facility] RBC 5.42 4.50 - 5.90 x10'6/uL 11/03/2024 8:01 AM CDT [facility] HGB 15.0 14.0 - 17.5 G/DL 11/03/2024 8:01 AM CDT [facility] HCT 46.0 41.5 - 50.4 % 11/03/2024 8:01 AM CDT [facility] MCV 84.9 80.0 - 96.0 FL 11/03/2024 8:01 AM CDT [facility] MCH 27.7 26.5 - 31.4 PG 11/03/2024 8:01 AM CDT [facility] MCHC 32.6 31.9 - 34.8 G/DL 11/03/2024 8:01 AM CDT [facility] RDW 15.7(H) 12.3 - 14.3 % 11/03/2024 8:01 AM CDT [facility] PLT 164 151 - 353 x10'3/uL 11/03/2024 8:01 AM CDT [facility] MPV 10.5 9.7 - 11.9 FL 11/03/2024 8:01 AM CDT [facility] 11/03/2024 7:42 AM CDT Comfort Elliott PENSION AGENT LABORATORY Final Result Performing Organization Address City/[facility]/ZIP Co de Phone Number [facility] [address] [place] [address], [place] [phone] * CK (CPK) (11/03/2024 7:42 AM CDT) CPK 86 39 - 308 U/L 11/03/2024 8:23 AM CDT [facility] 11/03/2024 7:42 AM CDT Comfort Elliott PENSION AGENT LABORATORY Final Result Performing Organization Address [facility] Co de Phone Number [facility] [address] [place] [address], [place] [phone] * (ABNORMAL) HEMOGLOBIN, GLYCATED (05/23/2024 8:10 AM LOGISTICS ENGINEERING MANAGER) HGB A1C 8.6(H) <5.7 % 05/23/2024 10:29 AM [address]ISTICS ENGINEERING MANAGER [facility] Comment: ADA GUIDELINES 2010 5.7 TO 6.4% INCREASED RISK OF DIABETES > OR = 6.5% CONSISTENT WITH DIABETES ESTIMATED AVG GLUCOSE 200 mg/dL 05/23/2024 10:29 AM [address]ISTICS ENGINEERING MANAGER [facility] 05/23/2024 8:10 AM LOGISTICS ENGINEERING MANAGER Issa Chaudhry MD LABORATORY Final Result Performing Organization Address City/[facility]/ZIP Co de Phone Number [facility] [address] [place] [address], [place] [phone] from Last 3 Months or Most Recently Relevant to Health Maintenance Insurance [employer] Advance Directives * Full Code (Latest Code Status on File) Date Activated Date Inactivated Comments 06/04/2024 2:54 PM 06/08/2024 1:21 PM * Full Code Date Activated Date Inactivated Comments 04/07/2024 8:57 AM 04/07/2024 3:06 PM Care Teams Hydrographical Technical Officer Relationship Specialty Start Date End Date Isela Garcia MD [address] [place] [address] PCP - General FAMILY PRACTICE 02/06/24 Gonzalez Zhu MD [address] [address] Consulting Physician CARDIOVASCULAR DISEASE 05/23/24
--- OUTSIDE RECORDS SUMMARY | 2025-01-02 11:59 | XMS_ITS | Encounter Summary ---
Author Organization [facility] Address [facility] [place] [address] Care Team Providers Care Employee Relations Representative Name Role Phone Isela Garcia MD Primary Care Provider Gonzalez Zhu MD Unavailable [phone] Encounter Details Date Type Department Care Team (Late st Contact Info) Description 06/24/2024 Oversight Systems Message Enc [facility], [facility] [address] [place] [address] Issa Chaudhry MD Three [facility]. [facility] [address] [place] [address] spironolactone 25 mg Social History Tobacco Use Types Packs/Day Years Used Date Smoking Tobacco: Never Smokeless Tobacco: Never Alcohol Use Standard Drinks/Week Comments Not Currently 3.3 (1 standard drink = 0.6 oz p ure alcohol) [facility] Utilities Answer Date Recorded In the past 12 months has [employer], gas, oil, or water [employer] threatened to shut off services in your [...] any time in the past 12 m [facility], were you homeless or living in a half-way (including now)? No 06/08/2024 Sex and Gender Information Value Date Recorded Sex Assigned at Male 06/18/2024 10:28 AM GREEN CHAIN MARKER Legal Sex Male 9:52 AM CDT Gender [...] Assessment Author Status No 06/08/2024 7:09 AM GREEN CHAIN MARKER Bill Geronimo ie, RN Active * Do you have difficulty dressing or bathing? Answer Date of Assessment Author Status No 06/08/2024 7:09 AM GREEN CHAIN MARKER Bill Geronimo ie, RN Active * Because of a physical, mental, or emotional condition, do you have difficulty doing errands alone such as visiting a doctor's office or shopping? Answer Date of Assessment Author Status No 06/08/2024 7:09 AM GREEN CHAIN MARKER Bill Geronimo ie, RN Active documented as [...] st Contact Info) Description 06/22/2025 1:30 PM GREEN CHAIN MARKER Office Visit [facility] [address] [place] [address] Comfort Elliott, PERSONAL INJURY LAW SPECIALIST [address] [facility] [address] [place], [place] [id number] documented as of this encounter Goals Goal Patient Goal Type Associated Problems Recent Progress Patient-Stated? Author Health - patient able to perform ADLs independently Lifestyle No Tammy Rainey RN documented as of this encounter Visit Diagnoses Not on filedocumented in this encounter Care Teams Employee Relations Representative Relationship Specialty Start Date End Date Isela Garcia MD [address] [place] [address] PCP - General FAMILY PRACTICE 02/06/24 Gonzalez Zhu MD Three [facility]. [address] [place], [place] [id number] Consulting Physician CARDIOVASCULAR DISEASE 05/23/24 documented as of this encounter
--- OUTSIDE RECORDS SUMMARY | 2025-01-02 11:59 | XMS_ITS | Encounter Summary ---
Author Organization [facility] Address [facility] [place] [address] Care Team Providers Care Cross Enterprise Integrator Name Role Phone Isela Garcia MD Primary Care Provider Gonzalez Zhu MD Unavailable [phone] Encounter Details Date Type Department Care Team (Late st Contact Info) Description 03/31/2024 Hunch Message Enc [place] [facility], [address] [place] [address] Gonzalez Zhu MD Three [facility]. [address] [place] [address] Upcoming cadia cath. Social History Tobacco Use Types Packs/Day Years Used Date Smoking Tobacco: Never Smokeless Tobacco: Never Alcohol Use Standard Drinks/Week Comments Yes 3.3 (1 standard drink = 0.6 oz p ure alcohol) Sex and Gender Information Value Date Recorded Sex Assigned at Male 06/18/2024 10:28 AM ZYGLO INSPECTOR Legal Sex Male 9:52 AM CDT Gender Identity Not on file Sexual Orientation Not on file documented as of this encounter Plan of Treatment Upcoming Encounters Date Type Department Care Team (Late st Contact Info) Description 06/22/2025 1:30 PM ZYGLO INSPECTOR [facility] [address] [place] [address] Comfort Elliott FNP 3 [facility] [address] [place] [address] documented as of this encounter Visit Diagnoses Not on filedocumented in this encounter Care Teams Cross Enterprise Integrator Relationship Specialty Start Date End Date Isela Garcia MD [address] [place] [address] PCP - General FAMILY PRACTICE 02/06/24 Gonzalez Zhu MD [facility]. [address] [place], [place] [address] Consulting Physician CARDIOVASCULAR DISEASE 05/23/24 documented as of this encounter
--- OUTSIDE RECORDS SUMMARY | 2025-01-02 11:59 | XMS_ITS | Encounter Summary ---
Author Organization [facility] Address [address] [place] [address] Care Team Providers Care Social Service Director Name Role Phone Isela Garcia MD Primary Care Provider Gonzalez Zhu MD Unavailable [phone] Encounter Details Date Type Department Care Team (Late st Contact Info) Description 04/10/2024 [employer] Message Enc [facility] [place] [facility], [address] [address] Gonzalez Zhu MD [facility]. [address] [address] HCT Social History Tobacco Use Types Packs/Day Years Used Date Smoking Tobacco: Never Smokeless Tobacco: Never Alcohol Use Standard Drinks/Week Comments Yes 3.3 (1 standard drink = 0.6 oz p ure alcohol) Sex and Gender Information Value Date Recorded Sex Assigned at Male 06/18/2024 10:28 AM MANAGER ENGLISH Legal Sex Male 9:52 AM CDT Gender Identity Not on file Sexual Orientation Not on file documented as of this encounter Progress Notes * JLUIS Sorto - 04/10/2024 1:57 PM CST No significant drop so no, not at this time GER ENGLISH documented in this encounter Plan of Treatment Upcoming Encounters Date Type Department Care Team (Late st Contact Info) Description 06/22/2025 1:30 PM MANAGER ENGLISH Office [facility] [place] [facility] [address] [place] [address] Comfort Elliott, JLUIS 3 [facility] [address] [place] [address] documented as of this encounter Visit Diagnoses Not on filedocumented in this encounter Care Teams Social Service Director Relationship Specialty Start Date End Date Isela Garcia MD [address] [place] [address] PCP - General FAMILY PRACTICE 02/06/24 Gonzalez Zhu MD Three [facility]. [address] [place], [place] [address] Consulting Physician CARDIOVASCULAR DISEASE 05/23/24 documented as of this encounter
--- OUTSIDE RECORDS SUMMARY | 2025-01-02 12:00 | XMS_ITS | Continuity of Care Document ---
Author Organization [facility] Address [address] [place] [address] Phone Care Team Providers Care Director Of Clinical Services Name Role Phone [facility] [place] [facility] Unavailable Unavailable Advance Directives Directive Yes / No Effective Date File Name No Information Encounters Encounter Description Practice Location Reason(s) For Visit Diagnoses Date Provider Providers Copied on Encounter [facility] - Insurance Business Applications [facility], [address] [place], [place], [id number], [place] tel:[phone] [facility] [place] [facility] No Information [facility] [place] [facility]. [address], [place], [id number], [place]. tel:[phone] Referring Provider: Houston Oliveira, [address] [place], [address]. tel:[phone] Family History Family Member Type Diagnosis Age At Onset No Information Payers Payer name Insurance type Covered green party ID Authoriza tion(s) [place] [facility] [employer] [place] [id number] Social History Type Description Quantity Date Captured [...]
--- OUTSIDE RECORDS SUMMARY | 2025-01-02 12:00 | XMS_ITS | Continuity of Care Document ---
Author Organization [facility], [facility] Address [address] [place] [address] Phone Care Team Providers Care [employer] Operator Helper Name Role Phone Kim OD, Vladimir Unavailable Unavailable Allergies, Adverse Reactions, Alerts Substance Reaction Status Criticality No Known Allergies Active No Inform ation Medications Medication Instructions Dosage Effective Dates (start - stop) Status Comments brimonidine 0.2 % eye drops instill 1 drop by ophthalmic route 2 x a day in the left eye for 3 days then stop - Active ketorolac 0.5 % eye drops instill 1 drop in operative eye QID for 9 days starting 2 days prior to surgery Disp 5ml - Active ofloxacin 0.3 % eye drops instill 1 drop to operative eye QID x 9 days starting 2 days before surgery Disp 5ml - Active prednisolone acetate 1 % eye drops,suspension Instill 1 drop QID to the operative eye starting 2 days before surgery, continue for 7 days after, then BID until advised otherwise by physician Disp 10 ml - Active Procedures Procedure Date REFRACTION POSTOP [...] Diagnoses Date Provider Providers Copied on Encounter [facility], [address] [place] [address], [id number] , tel:[phone] [facility] Post-op cataract surgery (chief complaint) Regular astigmatism, bilateralOther specified postprocedural statesMyopia, left eyePresbyopiaPres ence of intraocular lensType 2 diabetes mellitus without complications Oct-2 4 Kim Gilbert. [address] [place] [address], [id number], [place]. tel:[phone] Referring Provider: Vladimir Villarreal, [address] [place] [address], [id number]. tel:[phone] [facility], [address] [place] [address], [id number] , [place] tel:[phone] [facility] Post-op cataract surgery (chief complaint) Type 2 diabetes mellitus without complicationsLong term (current) use of oral hypoglycemic drugsPresence of intraocular lensPresbyopiaOth er specified postprocedural statesSecondary corneal edema, bilateral Oct-1 0- 4 Kim Gilbert. [address] [place] [address], [id number], [place]. tel:[phone] Referring Provider: Vladimir Villarreal, [address] [place] [address], [id number]. tel:[phone] [facility], [address] [place] [address], [id number] , [place] tel:[phone] [facility] Post-op cataract surgery (chief complaint) Cataract extraction status, right eye Sep- 4 Kim Gilbert. [address] [place] [address], [id number], [place]. tel:[phone] Referring Provider: Vladimir Villarreal, [address] [place] [address], [id number]. tel:[phone] [facility], [address] [place] [address], [id number] , [place] tel:[phone] [facility] Post-op cataract surgery (chief complaint) Cataract extraction status, right eye Sep-2 4 Kim Gilbert. [address] [place] [address], [id number], [place]. tel:[phone] Referring Provider: Vladimir Villarreal, [address] [place] [address], [id number]. tel:[phone] [facility], [address] [place] [address], [id number] , [place] tel:[phone] [facility] Age-related nuclear cataract, right eye Sep-2 4 Brady Conrad. [address] [place] [address], [id number], [place]. tel:[phone] Referring Provider: Houston Oliveira, [address] [place] [address], [id number]. tel:[phone] [facility], [address] [place] [address], [id number] , [place] tel:[phone] [facility] Age-related nuclear cataract, right eye Sep-2 4 Brady Conrad. [address] [place] [address], [id number], [place]. tel:[phone] [facility], [address] [place] [address], [id number] , [place] tel:[phone] [facility] Post-op cataract surgery (chief complaint) Cataract extraction status, left eye Sep-1 0 4 Anila López. [address] [place] [address], [id number], [place]. tel:[phone] Referring Provider: Maribel English, [address] [place] [address], [id number]. tel:[phone] [facility], [address] [place] [address], [id number] , [place] tel:[phone] [facility] No Information 4 Brady Conrad. [address] [place] [address], [id number], [place]. tel:[phone] Referring Provider: Houston Oliveira, [address] [place] [address], [id number]. [phone] [facility], [address] [place] [address], [id number] , [place] tel:[phone] [facility] No Information 4 Brady Conrad. [address] [place] [address], [id number], [place]. tel:[phone] Referring Provider: Gilma Eller, [address] [place] [address], [id number]. tel:[phone] [facility], [address] [place] [address], [id number] , [place] tel:[phone] [facility] No Information 4 Brady Conrad. [address] [place] [address], [id number], [place]. [phone] [facility], [address] [place] [address], [id number] , [place] tel:[phone] [facility] cataract evaluation (chief complaint) Type 2 diabetes mellitus without complicationsLong term (current) use of oral hypoglycemic drugs 4 Brady Conrad. [address] [place] [address], [id number], [place]. tel:[phone] Referring Provider: Houston Oliveira, [address] [place] [address], [id number]. tel:[phone] Family History Family Member Type Diagnosis Age At Onset Problem No family history of Macular degeneration Problem No family history of Catarac ts Mother Problem Diabetes mellitus Problem No family history of Glaucom a Problem No family history of Hyperte nsion Payers Payer name Insurance type Covered alliance party ID Dm perry(s) [place] [employer] [place] [id number] Social History Type Description Quantity Date Captured [...]
[2025-01-02 12:11] VITALS: BP 136/63; PULSE 67; RESP 18; TEMP 36.1; O2SAT 97
[2025-01-02 12:20] LABS: EDUAAPPEAR Clear; EDUABILI Negative (Negative); EDUABLOOD 1+ (Negative); EDUACOLOR1 Yellow; EDUAGLUCOSE 2+ (Negative); EDUAKETONE Negative (Negative); EDUALEUKO Negative (Negative); EDUANITRATE Negative (Negative); EDUAPH 7.0; EDUAPROTEIN Negative (Negative); EDUASPGRAVITY 1.015; EDUAUROBILI 0.2
== END 2025-01-02 12:44 | disposition home or self-care (01) ==
PROVIDERS: Emergency Provider Nurse Practitioner Family; PCP Family Medicine
DX: R30.0 Dysuria (principal); R31.9 Hematuria, unspecified; I25.10 Atherosclerotic heart disease of native coronary artery without angina pectoris; K21.9 Gastro-esophageal reflux disease without esophagitis; N40.1 Benign prostatic hyperplasia with lower urinary tract symptoms; E78.5 Hyperlipidemia, unspecified; I10 Essential (primary) hypertension; E11.9 Type 2 diabetes mellitus without complications; Z79.84 Long term (current) use of oral hypoglycemic drugs; Z79.82 Long term (current) use of aspirin; Z95.1 Presence of aortocoronary bypass graft
CPT/HCPCS: 81003; 87086; 99213; G0463

== ENCOUNTER 2025-04-15 08:06 | Outpatient (CLI) | payer MEDICARE, SELFPAY ==
[2025-04-15 16:43] LABS: Alanine Aminotransferase 25 U/L (6-50); Albumin Level 4.4 g/dL (3.5-5.1); Alkaline Phosphatase 75 U/L (38-126); Anion Gap 9 mmol/L (4-12); Aspartate Amino Transferase 56 U/L (17-59); Bilirubin,Total 0.9 mg/dL (0.2-1.3); Blood Urea Nitrogen 19 mg/dL (9-20); Calcium 9.3 mg/dL (8.4-10.2); Carbon Dioxide 27 mmol/L (22-30); Chloride 100 mmol/L (98-107); Estimated Glomerular Filt Rate > 60; Glucose 107 mg/dL (65-110); Magnesium 2.4 mg/dL (1.6-2.3); Potassium 4.1 mmol/L (3.4-5.0); Sodium 136 mmol/L (137-145); Total Protein 7.8 g/dL (6.3-8.2)
[2025-04-15 18:53] LABS: Hemoglobin A1C 6.9 % (<5.7)
== END 2025-04-15 08:07 | disposition home or self-care (01) ==
PROVIDERS: PCP Family Medicine; Visit Provider Family Medicine
DX: E11.9 Type 2 diabetes mellitus without complications (principal); I10 Essential (primary) hypertension; I25.10 Atherosclerotic heart disease of native coronary artery without angina pectoris
CPT/HCPCS: 36415; 80053; 83036; 83735